=== PATIENT | male | born 1930 | race Caucasian/White ===

== ENCOUNTER 2018-03-24 17:06 | Inpatient (IN) ==
[2018-03-24] MEDS ORDERED: ACETAMINOPHEN 500 MG TABLET PO STA (17:24)
[2018-03-24] MEDS ORDERED: MEROPENEM 1,000 MG in SODIUM CHLORIDE 0.9% 100 ML IV STA (17:24)
[2018-03-24 17:54] LABS: Basophils % 0.3 % (0.0-0.8); Eosinophils % 0.4 % (0.00-10.9); Hematocrit 43.1 VOL% (42.0-52.0); Hemoglobin 13.9 GM/DL (14.0-18.0); Immature Granulocytes % 0.5 %; Immature Granulocytes Absolute 0.05 #; Lymphocytes % 21.1 % (21.2-54.2); Mean Corpuscular HGB Conc 32.3 GM/DL (32-36); Mean Corpuscular Hemoglobin 31 PG (27-34); Mean Corpuscular Volume 97.1 FL (87-102); Mean Platelet Volume 9.8 FL (9.6-12.0); Monocytes # 1.1 10*3/uL (0.11-0.8); Monocytes % 10.9 % (1.7-12.7); Neutrophils # 6.4 10*3/uL (1.4-7.4); Neutrophils % 66.8 % (38.7-73.9); Platelet Count 151 T/CUMM (130-400); Red Blood Count 4.44 MC/CUMM (3.8-5.5); White Blood Count 9.6 T/CUMM (4-12)
[2018-03-24 18:16] LABS: Albumin 3.6 G/DL (3.4-5.0); Bilirubin,Total 0.7 MG/DL (0.2-1.0); Calcium 8.5 MG/DL (8.5-10.1); Osmolality,Calculated 282.4 MOS/KG (273-304); Potassium 4.6 MMOL/L (3.5-5.1); Total Protein 6.7 G/DL (6.4-8.3)
[2018-03-24 18:17] LABS: Lactic Acid 1.4 MMOL/L (0.4-2.0)
[2018-03-24 19:16] LABS: Band Neutrophils 4 % (0-10); Eosinophils 2 % (0-10); Lymphocytes 34 % (20-55); Segmented Neutrophils 57 % (50-85); Total Cells Counted 100
[2018-03-24 19:18] LABS: Macrocytosis 1+
[2018-03-24 19:19] LABS: Platelet Estimate Adequate
[2018-03-24] MEDS ORDERED: ONDANSETRON 4 MG/2 ML VIAL IV PRN (19:41)
[2018-03-24] MEDS ORDERED: traZODone 50 MG TABLET PO PRN (19:41)
[2018-03-24] MEDS ORDERED: guaiFENesin/DM ER 600-30 MG TABLET PO PRN (19:41)
[2018-03-24] MEDS ORDERED: VANCOMYCIN INJ 1,000 MG in SODIUM CHLORIDE 0.9% 250 ML IV STA (19:51)
[2018-03-24 21:07] LABS: Apearance,Urine CLEAR (Clear); Bacteria,Urine Occasional /HPF (Few); Bilirubin,Urine Negative (Negative); Blood, Urine Moderate mg/dL (Negative); Glucose,Urine (UA) Negative (Negative); Ketones,Urine Negative (Negative); Mucus,Urine Occasional /LPF (Occasional); Nitrite,Urine Negative (Negative); Protein,Urine Negative; RBC,Urine 11 /HPF (0-4); Urine Color Yellow (Yellow); Urine Specific Gravity 1.012 (1.001-1.035); Urine Urobilinogen < 2.0 EU/DL (0.2-1.0); WBC,Urine 1 /HPF (0-6)
[2018-03-24 21:13] LABS: Sedimentation Rate-Westergren 11 MM/HR (0-20)
[2018-03-24] MEDS: ASPIRIN 325 MG TABLET PO SCH (22:41)
[2018-03-24] MEDS: MAGNESIUM OXIDE 400 MG TABLET PO SCH (22:41)
[2018-03-24] MEDS: METOPROLOL SUCCINATE XL 50 MG TABLET PO SCH (22:41)
[2018-03-24] MEDS: ATORVASTATIN 10 MG TABLET PO SCH (22:41)
[2018-03-24] MEDS: FUROSEMIDE 40 MG/4 ML VIAL IV SCH (22:46)
[2018-03-24] MEDS: ENOXAPARIN 40 MG/0.4 ML SYRINGE SUBCUT SCH (22:51)
[2018-03-25] MEDS: PIPERACILLIN/TAZOBACTAM 3,375 MG in SODIUM CHLORIDE 0.9% 100 ML IV SCH ×2 (00:06→08:54)
[2018-03-25 06:09] LABS: Basophils % 0.2 % (0.0-0.8); Eosinophils # 0.1 10*3/uL (0.0-0.87); Eosinophils % 0.7 % (0.00-10.9); Hematocrit 37.1 VOL% (42.0-52.0); Hemoglobin 12.4 GM/DL (14.0-18.0); Immature Granulocytes % 0.7 %; Immature Granulocytes Absolute 0.06 #; Lymphocytes % 21.3 % (21.2-54.2); Mean Corpuscular HGB Conc 33.4 GM/DL (32-36); Mean Corpuscular Hemoglobin 31 PG (27-34); Mean Corpuscular Volume 93.7 FL (87-102); Mean Platelet Volume 10.2 FL (9.6-12.0); Monocytes # 0.9 10*3/uL (0.11-0.8); Monocytes % 9.8 % (1.7-12.7); Neutrophils # 6.2 10*3/uL (1.4-7.4); Neutrophils % 67.3 % (38.7-73.9); Platelet Count 136 T/CUMM (130-400); Red Blood Count 3.96 MC/CUMM (3.8-5.5); Red Cell Distribution Width 14.2 % (9.3-17.3); White Blood Count 9.2 T/CUMM (4-12)
[2018-03-25] MEDS: VANCOMYCIN INJ 1,250 MG in SODIUM CHLORIDE 0.9% 250 ML IV SCH ×2 (06:13→18:16)
[2018-03-25 06:26] LABS: Calcium 8.4 MG/DL (8.5-10.1); Potassium 3.7 MMOL/L (3.5-5.1)
[2018-03-25] MEDS: FUROSEMIDE 40 MG/4 ML VIAL IV SCH ×2 (08:53→21:12)
[2018-03-25] MEDS: PANTOPRAZOLE 40 MG TABLET PO SCH (08:53)
[2018-03-25] MEDS: METOPROLOL SUCCINATE XL 50 MG TABLET PO SCH (21:11)
[2018-03-25] MEDS: ATORVASTATIN 10 MG TABLET PO SCH (21:11)
[2018-03-25] MEDS: ASPIRIN 325 MG TABLET PO SCH (21:12)
[2018-03-25] MEDS: MAGNESIUM OXIDE 400 MG TABLET PO SCH (21:12)
[2018-03-25] MEDS: ENOXAPARIN 40 MG/0.4 ML SYRINGE SUBCUT SCH (21:15)
[2018-03-26] MEDS: VANCOMYCIN INJ 1,250 MG in SODIUM CHLORIDE 0.9% 250 ML IV SCH (05:47)
[2018-03-26] MEDS: FUROSEMIDE 40 MG/4 ML VIAL IV SCH ×2 (09:57→20:05)
[2018-03-26] MEDS: PANTOPRAZOLE 40 MG TABLET PO SCH (10:00)
[2018-03-26] MEDS: Umeclidinium Brm/Vilanterol Tr [Anoro Ellipta] INH SCH (10:00)
[2018-03-26] MEDS: VANCOMYCIN INJ 1,000 MG in SODIUM CHLORIDE 0.9% 250 ML IV SCH (19:31)
[2018-03-26] MEDS: ATORVASTATIN 10 MG TABLET PO SCH (20:05)
[2018-03-26] MEDS: ENOXAPARIN 40 MG/0.4 ML SYRINGE SUBCUT SCH (20:05)
[2018-03-26] MEDS: MAGNESIUM OXIDE 400 MG TABLET PO SCH (20:05)
[2018-03-26] MEDS: METOPROLOL SUCCINATE XL 50 MG TABLET PO SCH (20:05)
[2018-03-26] MEDS: ASPIRIN 325 MG TABLET PO SCH (20:05)
[2018-03-27] MEDS: VANCOMYCIN INJ 1,000 MG in SODIUM CHLORIDE 0.9% 250 ML IV SCH ×2 (05:11→18:03)
[2018-03-27 07:00] LABS: Basophils % 0.4 % (0.0-0.8); Eosinophils # 0.3 10*3/uL (0.0-0.87); Eosinophils % 3.5 % (0.00-10.9); Hematocrit 44.1 VOL% (42.0-52.0); Immature Granulocytes % 1.1 %; Immature Granulocytes Absolute 0.09 #; Lymphocytes # 2.4 10*3/uL (1.4-4.0); Lymphocytes % 29.6 % (21.2-54.2); Mean Corpuscular HGB Conc 32.7 GM/DL (32-36); Mean Corpuscular Hemoglobin 31 PG (27-34); Mean Corpuscular Volume 96.1 FL (87-102); Mean Platelet Volume 10.5 FL (9.6-12.0); Monocytes % 12.1 % (1.7-12.7); Neutrophils # 4.3 10*3/uL (1.4-7.4); Neutrophils % 53.3 % (38.7-73.9); Red Blood Count 4.59 MC/CUMM (3.8-5.5); Red Cell Distribution Width 14.1 % (9.3-17.3)
[2018-03-27 07:28] LABS: Hemoglobin 14.4 GM/DL (14.0-18.0); Platelet Count 183 T/CUMM (130-400)
[2018-03-27 07:31] LABS: Bilirubin,Total 0.8 MG/DL (0.2-1.0); Calcium 8.8 MG/DL (8.5-10.1); Osmolality,Calculated 285.1 MOS/KG (273-304); Potassium 3.5 MMOL/L (3.5-5.1); Total Protein 6.7 G/DL (6.4-8.3)
[2018-03-27] MEDS: PANTOPRAZOLE 40 MG TABLET PO SCH (08:52)
[2018-03-27] MEDS: FUROSEMIDE 40 MG/4 ML VIAL IV SCH ×2 (08:55→20:18)
[2018-03-27] MEDS: Umeclidinium Brm/Vilanterol Tr [Anoro Ellipta] INH SCH (08:56)
[2018-03-27] MEDS: LEVOFLOXACIN 500 MG TABLET PO SCH (13:03)
[2018-03-27] MEDS: ENOXAPARIN 40 MG/0.4 ML SYRINGE SUBCUT SCH (20:18)
[2018-03-27] MEDS: ATORVASTATIN 10 MG TABLET PO SCH (20:18)
[2018-03-27] MEDS: ASPIRIN 325 MG TABLET PO SCH (20:18)
[2018-03-27] MEDS: MAGNESIUM OXIDE 400 MG TABLET PO SCH (20:18)
[2018-03-27] MEDS: DOCUSATE SODIUM 100 MG CAPSULE PO PRN (20:18)
[2018-03-27] MEDS: METOPROLOL SUCCINATE XL 50 MG TABLET PO SCH (20:18)
[2018-03-28 04:28] LABS: Basophils # 0.1 10*3/uL (0.0-0.2); Eosinophils # 0.3 10*3/uL (0.0-0.87); Eosinophils % 4.5 % (0.00-10.9); Hematocrit 42.2 VOL% (42.0-52.0); Hemoglobin 13.6 GM/DL (14.0-18.0); Immature Granulocytes % 0.7 %; Immature Granulocytes Absolute 0.04 #; Lymphocytes % 33.2 % (21.2-54.2); Mean Corpuscular HGB Conc 32.2 GM/DL (32-36); Mean Corpuscular Hemoglobin 31 PG (27-34); Mean Corpuscular Volume 95.9 FL (87-102); Mean Platelet Volume 10.6 FL (9.6-12.0); Monocytes % 16.3 % (1.7-12.7); Neutrophils # 2.7 10*3/uL (1.4-7.4); Neutrophils % 44.3 % (38.7-73.9); Platelet Count 190 T/CUMM (130-400)
[2018-03-28 04:59] LABS: Band Neutrophils 2 % (0-10); Eosinophils 3 % (0-10); Lymphocytes 30 % (20-55); Segmented Neutrophils 48 % (50-85); Total Cells Counted 100
[2018-03-28 05:00] LABS: Hypochromasia 1+; Platelet Estimate Adequate
[2018-03-28 05:03] LABS: Albumin 2.6 G/DL (3.4-5.0); Bilirubin,Total 0.9 MG/DL (0.2-1.0); Calcium 8.7 MG/DL (8.5-10.1); Potassium 3.8 MMOL/L (3.5-5.1); Total Protein 6.5 G/DL (6.4-8.3)
[2018-03-28] MEDS: VANCOMYCIN INJ 1,000 MG in SODIUM CHLORIDE 0.9% 250 ML IV SCH (05:16)
[2018-03-28] MEDS: FUROSEMIDE 40 MG/4 ML VIAL IV SCH (08:56)
[2018-03-28] MEDS: LEVOFLOXACIN 500 MG TABLET PO SCH (08:57)
[2018-03-28] MEDS: PANTOPRAZOLE 40 MG TABLET PO SCH (08:57)
[2018-03-28] MEDS: Umeclidinium Brm/Vilanterol Tr [Anoro Ellipta] INH SCH (09:03)
[2018-03-28] MEDS: DOCUSATE SODIUM 100 MG CAPSULE PO PRN (09:58)
[2018-03-28] MEDS ORDERED: METOPROLOL TARTRATE 5 MG/5 ML VIAL IV ONE (10:46)
[2018-03-28] MEDS ORDERED: DILTIAZEM 25 MG/5 ML VIAL IV ONE (14:15)
[2018-03-28] MEDS ORDERED: LABETALOL 20 MG/4 ML SYRINGE IV ONE (15:38)
[2018-03-28] MEDS ORDERED: PANTOPRAZOLE 40 MG TABLET PO SCH (21:00)
[2018-03-28] MEDS: METOPROLOL SUCCINATE XL 50 MG TABLET PO SCH (21:42)
[2018-03-28] MEDS: ENOXAPARIN 40 MG/0.4 ML SYRINGE SUBCUT SCH (21:42)
[2018-03-28] MEDS: DOCUSATE SODIUM 100 MG CAPSULE PO SCH (21:42)
[2018-03-28] MEDS: ASPIRIN 325 MG TABLET PO SCH (21:42)
[2018-03-28] MEDS: MAGNESIUM OXIDE 400 MG TABLET PO SCH (21:42)
[2018-03-28] MEDS: ATORVASTATIN 10 MG TABLET PO SCH (21:42)
[2018-03-29 05:07] LABS: Basophils # 0.1 10*3/uL (0.0-0.2); Basophils % 0.8 % (0.0-0.8); Eosinophils # 0.2 10*3/uL (0.0-0.87); Eosinophils % 2.9 % (0.00-10.9); Hematocrit 47.2 VOL% (42.0-52.0); Hemoglobin 15.5 GM/DL (14.0-18.0); Immature Granulocytes % 0.6 %; Immature Granulocytes Absolute 0.04 #; Lymphocytes # 3.9 10*3/uL (1.4-4.0); Lymphocytes % 53.5 % (21.2-54.2); Mean Corpuscular HGB Conc 32.8 GM/DL (32-36); Mean Corpuscular Hemoglobin 31 PG (27-34); Mean Corpuscular Volume 95.5 FL (87-102); Mean Platelet Volume 10.9 FL (9.6-12.0); Monocytes # 0.9 10*3/uL (0.11-0.8); Monocytes % 12.5 % (1.7-12.7); Neutrophils # 2.2 10*3/uL (1.4-7.4); Neutrophils % 29.7 % (38.7-73.9); Platelet Count 215 T/CUMM (130-400); Red Blood Count 4.94 MC/CUMM (3.8-5.5); Red Cell Distribution Width 14.2 % (9.3-17.3); White Blood Count 7.2 T/CUMM (4-12)
[2018-03-29 05:31] LABS: Eosinophils 6 % (0-10); Segmented Neutrophils 24 % (50-85)
[2018-03-29 05:32] LABS: Atypical Lymphocytes Few; Hypochromasia 1+; Lymphocytes 56 % (20-55); Ovalocytes Slight; Platelet Estimate Adequate; Total Cells Counted 100
[2018-03-29] MEDS: VANCOMYCIN INJ 1,000 MG in SODIUM CHLORIDE 0.9% 250 ML IV SCH ×2 (06:41→18:15)
[2018-03-29] MEDS: PANTOPRAZOLE 40 MG TABLET PO SCH (08:21)
[2018-03-29] MEDS: FUROSEMIDE 40 MG TABLET PO SCH (08:22)
[2018-03-29] MEDS: LEVOFLOXACIN 500 MG TABLET PO SCH (08:25)
[2018-03-29 08:41] LABS: Albumin 2.9 G/DL (3.4-5.0); Bilirubin,Total 0.9 MG/DL (0.2-1.0); Calcium 8.8 MG/DL (8.5-10.1); Potassium 3.6 MMOL/L (3.5-5.1); Total Protein 6.3 G/DL (6.4-8.3)
[2018-03-29] MEDS ORDERED: DILTIAZEM CD 120 MG CAPSULE PO SCH (09:30)
[2018-03-29] MEDS: Umeclidinium Brm/Vilanterol Tr [Anoro Ellipta] INH SCH (12:50)
[2018-03-29] MEDS: ASPIRIN 325 MG TABLET PO SCH (21:26)
[2018-03-29] MEDS: ATORVASTATIN 10 MG TABLET PO SCH (21:26)
[2018-03-29] MEDS: METOPROLOL TARTRATE 50 MG TABLET PO SCH (21:26)
[2018-03-29] MEDS: MAGNESIUM OXIDE 400 MG TABLET PO SCH (21:26)
[2018-03-29] MEDS: ENOXAPARIN 40 MG/0.4 ML SYRINGE SUBCUT SCH (21:26)
[2018-03-29] MEDS: DOCUSATE SODIUM 100 MG CAPSULE PO SCH (21:26)
[2018-03-30 04:47] LABS: Basophils # 0.1 10*3/uL (0.0-0.2); Basophils % 1.3 % (0.0-0.8); Eosinophils # 0.2 10*3/uL (0.0-0.87); Eosinophils % 3.8 % (0.00-10.9); Hematocrit 43.7 VOL% (42.0-52.0); Immature Granulocytes % 0.7 %; Immature Granulocytes Absolute 0.04 #; Lymphocytes # 2.7 10*3/uL (1.4-4.0); Lymphocytes % 49.1 % (21.2-54.2); Mean Corpuscular Hemoglobin 31 PG (27-34); Mean Corpuscular Volume 96.9 FL (87-102); Mean Platelet Volume 10.3 FL (9.6-12.0); Monocytes # 0.9 10*3/uL (0.11-0.8); Monocytes % 16.2 % (1.7-12.7); Neutrophils # 1.6 10*3/uL (1.4-7.4); Neutrophils % 28.9 % (38.7-73.9); Platelet Count 213 T/CUMM (130-400); Red Blood Count 4.51 MC/CUMM (3.8-5.5); White Blood Count 5.5 T/CUMM (4-12)
[2018-03-30 05:11] LABS: Calcium 8.8 MG/DL (8.5-10.1); Osmolality,Calculated 292.7 MOS/KG (273-304); Potassium 3.8 MMOL/L (3.5-5.1)
[2018-03-30 05:49] LABS: Albumin 2.7 G/DL (3.4-5.0); Bilirubin,Total 0.6 MG/DL (0.2-1.0); Calcium 8.9 MG/DL (8.5-10.1); Potassium 3.8 MMOL/L (3.5-5.1); Total Protein 6.2 G/DL (6.4-8.3)
[2018-03-30] MEDS: VANCOMYCIN INJ 1,000 MG in SODIUM CHLORIDE 0.9% 250 ML IV SCH ×2 (05:51→18:33)
[2018-03-30 07:38] LABS: Band Neutrophils 1 % (0-10); Eosinophils 3 % (0-10); Hypochromasia 1+; Lymphocytes 53 % (20-55); Segmented Neutrophils 28 % (50-85); Total Cells Counted 100
[2018-03-30 07:39] LABS: Macrocytosis Slight; Platelet Estimate Normal
[2018-03-30] MEDS ORDERED: DILTIAZEM CD 240 MG CAPSULE PO SCH (08:45)
[2018-03-30 09:12] LABS: Atypical Lymphocytes Moderate
[2018-03-30] MEDS: METOPROLOL TARTRATE 50 MG TABLET PO SCH ×2 (09:21→20:45)
[2018-03-30] MEDS: PANTOPRAZOLE 40 MG TABLET PO SCH (09:21)
[2018-03-30] MEDS: FUROSEMIDE 40 MG TABLET PO SCH (09:22)
[2018-03-30] MEDS: ASPIRIN EC 81 MG TABLET PO SCH (09:22)
[2018-03-30] MEDS: LEVOFLOXACIN 500 MG TABLET PO SCH (09:23)
[2018-03-30] MEDS: APIXABAN 5 MG TABLET PO SCH ×2 (09:23→20:44)
[2018-03-30] MEDS: FILGRASTIM-SNDZ 300 MCG/0.5 ML SYRINGE SUBCUT SCH (09:26)
[2018-03-30] MEDS: Umeclidinium Brm/Vilanterol Tr [Anoro Ellipta] INH SCH (09:27)
[2018-03-30] MEDS: MAGNESIUM OXIDE 400 MG TABLET PO SCH (20:44)
[2018-03-30] MEDS: ATORVASTATIN 10 MG TABLET PO SCH (20:45)
[2018-03-30] MEDS: DOCUSATE SODIUM 100 MG CAPSULE PO SCH (20:45)
[2018-03-31 04:04] LABS: Basophils # 0.1 10*3/uL (0.0-0.2); Basophils % 0.9 % (0.0-0.8); Eosinophils # 0.2 10*3/uL (0.0-0.87); Eosinophils % 2.6 % (0.00-10.9); Hematocrit 42.5 VOL% (42.0-52.0); Hemoglobin 13.8 GM/DL (14.0-18.0); Immature Granulocytes % 7.4 %; Immature Granulocytes Absolute 0.58 #; Lymphocytes # 2.2 10*3/uL (1.4-4.0); Lymphocytes % 27.7 % (21.2-54.2); Mean Corpuscular HGB Conc 32.5 GM/DL (32-36); Mean Corpuscular Hemoglobin 32 PG (27-34); Mean Corpuscular Volume 97.7 FL (87-102); Mean Platelet Volume 10.1 FL (9.6-12.0); Monocytes # 1.3 10*3/uL (0.11-0.8); Neutrophils # 3.5 10*3/uL (1.4-7.4); Neutrophils % 45.4 % (38.7-73.9); Platelet Count 207 T/CUMM (130-400); Red Blood Count 4.35 MC/CUMM (3.8-5.5); Red Cell Distribution Width 13.8 % (9.3-17.3); White Blood Count 7.8 T/CUMM (4-12)
[2018-03-31 04:42] LABS: Bilirubin,Total 1.1 MG/DL (0.2-1.0); Calcium 8.7 MG/DL (8.5-10.1); Potassium 4.1 MMOL/L (3.5-5.1); Total Protein 6.2 G/DL (6.4-8.3)
[2018-03-31 05:24] LABS: Band Neutrophils 4 % (0-10); Eosinophils 5 % (0-10); Hypochromasia 1+; Lymphocytes 26 % (20-55); Macrocytosis Slight; Ovalocytes Slight; Platelet Estimate Adequate; Segmented Neutrophils 51 % (50-85); Total Cells Counted 100
[2018-03-31 05:25] LABS: Atypical Lymphocytes Few
[2018-03-31] MEDS: VANCOMYCIN INJ 1,000 MG in SODIUM CHLORIDE 0.9% 250 ML IV SCH (05:45)
[2018-03-31] MEDS ORDERED: SODIUM CHLORIDE 0.9% 500 ML IV ONE (09:39)
[2018-03-31] MEDS: ASPIRIN EC 81 MG TABLET PO SCH (09:46)
[2018-03-31] MEDS: APIXABAN 5 MG TABLET PO SCH ×2 (09:46→21:01)
[2018-03-31] MEDS: LEVOFLOXACIN 500 MG TABLET PO SCH (09:46)
[2018-03-31] MEDS: FUROSEMIDE 40 MG TABLET PO SCH (09:46)
[2018-03-31] MEDS: METOPROLOL TARTRATE 50 MG TABLET PO SCH ×2 (09:47→21:02)
[2018-03-31] MEDS: PANTOPRAZOLE 40 MG TABLET PO SCH (09:47)
[2018-03-31] MEDS: DILTIAZEM CD 180 MG CAPSULE PO SCH (09:53)
[2018-03-31] MEDS: FILGRASTIM-SNDZ 300 MCG/0.5 ML SYRINGE SUBCUT SCH (10:02)
[2018-03-31] MEDS: Umeclidinium Brm/Vilanterol Tr [Anoro Ellipta] INH SCH (10:03)
[2018-03-31] MEDS ORDERED: HALOPERIDOL 5 MG/ML AMP IM ONE ×2 (10:10→21:00)
[2018-03-31] MEDS: SODIUM CHLORIDE 0.9% 1,000 ML IV SCH (10:20)
[2018-03-31] MEDS ORDERED: HALOPERIDOL 5 MG/ML AMP IV ONE (10:39)
[2018-03-31 14:57] LABS: Apearance,Urine CLEAR (Clear); Bilirubin,Urine Negative (Negative); Blood, Urine Negative (Negative); Glucose,Urine (UA) Negative (Negative); Hyaline Casts,Urine 1 /LPF (0-3); Ketones,Urine Negative (Negative); Mucus,Urine Occasional /LPF (Occasional); Nitrite,Urine Negative (Negative); Protein,Urine Negative; RBC,Urine <1 /HPF (0-4); Urine Color Straw (Yellow); Urine Specific Gravity 1.005 (1.001-1.035); Urine Urobilinogen < 2.0 EU/DL (0.2-1.0); WBC,Urine <1 /HPF (0-6)
[2018-03-31] MEDS: DOCUSATE SODIUM 100 MG CAPSULE PO SCH (21:01)
[2018-03-31] MEDS: MAGNESIUM OXIDE 400 MG TABLET PO SCH (21:01)
[2018-03-31] MEDS: ATORVASTATIN 10 MG TABLET PO SCH (21:02)
[2018-04-01 02:32] LABS: Basophils # 0.1 10*3/uL (0.0-0.2); Basophils % 1.2 % (0.0-0.8); Eosinophils # 0.1 10*3/uL (0.0-0.87); Eosinophils % 1.4 % (0.00-10.9); Hematocrit 43.6 VOL% (42.0-52.0); Hemoglobin 14.4 GM/DL (14.0-18.0); Immature Granulocytes % 0.4 %; Immature Granulocytes Absolute 0.04 #; Lymphocytes # 2.1 10*3/uL (1.4-4.0); Lymphocytes % 20.3 % (21.2-54.2); Mean Corpuscular Hemoglobin 32 PG (27-34); Mean Corpuscular Volume 95.4 FL (87-102); Mean Platelet Volume 10.3 FL (9.6-12.0); Monocytes # 1.3 10*3/uL (0.11-0.8); Monocytes % 12.6 % (1.7-12.7); Neutrophils # 6.7 10*3/uL (1.4-7.4); Neutrophils % 64.1 % (38.7-73.9); Platelet Count 223 T/CUMM (130-400); Red Blood Count 4.57 MC/CUMM (3.8-5.5); Red Cell Distribution Width 14.1 % (9.3-17.3); White Blood Count 10.4 T/CUMM (4-12)
[2018-04-01 03:02] LABS: Bilirubin,Total 0.9 MG/DL (0.2-1.0); Calcium 9.1 MG/DL (8.5-10.1); Potassium 4.1 MMOL/L (3.5-5.1); Total Protein 6.7 G/DL (6.4-8.3)
[2018-04-01 05:20] LABS: Band Neutrophils 32 % (0-10); Lymphocytes 28 % (20-55); Segmented Neutrophils 27 % (50-85); Total Cells Counted 100
[2018-04-01] MEDS ORDERED: DILTIAZEM CD 120 MG CAPSULE PO ONE (08:56)
[2018-04-01] MEDS: DILTIAZEM CD 180 MG CAPSULE PO SCH (09:42)
[2018-04-01] MEDS: APIXABAN 5 MG TABLET PO SCH ×2 (09:45→20:02)
[2018-04-01] MEDS: FUROSEMIDE 40 MG TABLET PO SCH (09:46)
[2018-04-01] MEDS: METOPROLOL TARTRATE 50 MG TABLET PO SCH ×2 (09:47→20:02)
[2018-04-01] MEDS: LEVOFLOXACIN 500 MG TABLET PO SCH (09:48)
[2018-04-01] MEDS: ASPIRIN EC 81 MG TABLET PO SCH (09:48)
[2018-04-01] MEDS: FILGRASTIM-SNDZ 300 MCG/0.5 ML SYRINGE SUBCUT SCH (09:50)
[2018-04-01] MEDS: Umeclidinium Brm/Vilanterol Tr [Anoro Ellipta] INH SCH (09:51)
[2018-04-01] MEDS: PANTOPRAZOLE 40 MG TABLET PO SCH (09:53)
[2018-04-01] MEDS: SODIUM CHLORIDE 0.9% 1,000 ML IV SCH (11:54)
[2018-04-01] MEDS: DOCUSATE SODIUM 100 MG CAPSULE PO SCH (20:02)
[2018-04-01] MEDS: ATORVASTATIN 10 MG TABLET PO SCH (20:02)
[2018-04-01] MEDS: MAGNESIUM OXIDE 400 MG TABLET PO SCH (20:02)
[2018-04-02] MEDS: SODIUM CHLORIDE 0.9% 1,000 ML IV SCH (00:47)
[2018-04-02] MEDS: METOPROLOL TARTRATE 50 MG TABLET PO SCH ×2 (08:29→20:57)
[2018-04-02] MEDS: LEVOFLOXACIN 500 MG TABLET PO SCH (08:29)
[2018-04-02] MEDS: Umeclidinium Brm/Vilanterol Tr [Anoro Ellipta] INH SCH (08:29)
[2018-04-02] MEDS: ASPIRIN EC 81 MG TABLET PO SCH (08:29)
[2018-04-02] MEDS: APIXABAN 5 MG TABLET PO SCH ×2 (08:29→20:57)
[2018-04-02] MEDS: PANTOPRAZOLE 40 MG TABLET PO SCH (08:30)
[2018-04-02] MEDS ORDERED: ADENOSINE 6 MG/2 ML VIAL ONE ×2 (12:50→12:52)
[2018-04-02] MEDS ORDERED: ADENOSINE 6 MG/2 ML VIAL IV ONE ×2 (18:51→18:52)
[2018-04-02] MEDS: DOCUSATE SODIUM 100 MG CAPSULE PO SCH (20:57)
[2018-04-02] MEDS: MAGNESIUM OXIDE 400 MG TABLET PO SCH (20:57)
[2018-04-02] MEDS: ATORVASTATIN 10 MG TABLET PO SCH (20:57)
[2018-04-03 05:18] LABS: Calcium 8.9 MG/DL (8.5-10.1); Osmolality,Calculated 290.8 MOS/KG (273-304); Potassium 4.3 MMOL/L (3.5-5.1)
[2018-04-03 07:13] LABS: Basophils # 0.2 10*3/uL (0.0-0.2); Basophils % 1.2 % (0.0-0.8); Eosinophils # 0.1 10*3/uL (0.0-0.87); Eosinophils % 0.8 % (0.00-10.9); Immature Granulocytes % 1.8 %; Immature Granulocytes Absolute 0.24 #; Lymphocytes # 3.5 10*3/uL (1.4-4.0); Lymphocytes % 26.7 % (21.2-54.2); Mean Corpuscular HGB Conc 31.8 GM/DL (32-36); Mean Corpuscular Hemoglobin 31 PG (27-34); Mean Corpuscular Volume 98.7 FL (87-102); Mean Platelet Volume 10.6 FL (9.6-12.0); Monocytes # 1.8 10*3/uL (0.11-0.8); Monocytes % 13.5 % (1.7-12.7); Neutrophils # 7.3 10*3/uL (1.4-7.4); Platelet Count 215 T/CUMM (130-400); Red Blood Count 4.46 MC/CUMM (3.8-5.5); Red Cell Distribution Width 14.2 % (9.3-17.3)
[2018-04-03 07:25] LABS: Albumin 2.8 G/DL (3.4-5.0); Bilirubin,Total 0.6 MG/DL (0.2-1.0); Calcium 8.9 MG/DL (8.5-10.1); Potassium 4.3 MMOL/L (3.5-5.1); Total Protein 6.1 G/DL (6.4-8.3)
[2018-04-03 07:34] LABS: Band Neutrophils 1 % (0-10); Lymphocytes 26 % (20-55); Segmented Neutrophils 61 % (50-85)
[2018-04-03 07:35] LABS: Atypical Lymphocytes Few; Hypochromasia 1+; Macrocytosis Slight; Platelet Estimate Adequate; Total Cells Counted 100
[2018-04-03] MEDS: PANTOPRAZOLE 40 MG TABLET PO SCH (09:33)
[2018-04-03] MEDS: LEVOFLOXACIN 500 MG TABLET PO SCH (09:33)
[2018-04-03] MEDS: ASPIRIN EC 81 MG TABLET PO SCH (09:33)
[2018-04-03] MEDS: APIXABAN 5 MG TABLET PO SCH ×2 (09:33→21:04)
[2018-04-03] MEDS: METOPROLOL TARTRATE 50 MG TABLET PO SCH ×2 (09:33→21:04)
[2018-04-03] MEDS: Umeclidinium Brm/Vilanterol Tr [Anoro Ellipta] INH SCH (09:34)
[2018-04-03] MEDS ORDERED: PROPOFOL 200 MG/20 ML VIAL IV ONE (10:32)
[2018-04-03] MEDS ORDERED: ETOMIDATE 40 MG/20 ML VIAL IV ONE (10:33)
[2018-04-03] MEDS ORDERED: MIDAZOLAM 2 MG/2 ML VIAL ONE (10:33)
[2018-04-03] MEDS: SODIUM CHLORIDE 0.9% 1,000 ML IV SCH (15:56)
[2018-04-03] MEDS: DOCUSATE SODIUM 100 MG CAPSULE PO SCH (21:04)
[2018-04-03] MEDS: ATORVASTATIN 10 MG TABLET PO SCH (21:04)
[2018-04-03] MEDS: MAGNESIUM OXIDE 400 MG TABLET PO SCH (21:04)
[2018-04-04 08:29] VITALS: BP 165/72
[2018-04-04] MEDS: METOPROLOL TARTRATE 50 MG TABLET PO SCH (11:24)
[2018-04-04] MEDS: ASPIRIN EC 81 MG TABLET PO SCH (11:24)
[2018-04-04] MEDS: LEVOFLOXACIN 500 MG TABLET PO SCH (11:24)
[2018-04-04] MEDS: PANTOPRAZOLE 40 MG TABLET PO SCH (11:24)
[2018-04-04] MEDS: APIXABAN 5 MG TABLET PO SCH (11:25)
== END 2018-04-04 12:30 | disposition home health service (06) | DRG 603 ==
LOC: N.ED 17:06 → N.EDINP 19:39 → SUATTDRO 19:39 → N.4E 22:02 → N.TELEN 04-02 10:36
PROVIDERS: ADMIT Emergency Medicine; ATTEND Internal Medicine

== ENCOUNTER 2018-05-01 06:22 | Inpatient (IN) ==
[2018-05-01] MEDS ORDERED: SODIUM CHLORIDE 0.9% 500 ML IV STA (06:46)
[2018-05-01] MEDS ORDERED: ONDANSETRON 4 MG/2 ML VIAL IV STA (06:47)
[2018-05-01] MEDS ORDERED: fentaNYL 100 MCG/2 ML VIAL IV STA (06:47)
[2018-05-01 07:48] LABS: Basophils % 0.8 % (0.0-0.8); Eosinophils # 0.1 10*3/uL (0.0-0.87); Hematocrit 41.3 VOL% (42.0-52.0); Hemoglobin 13.5 GM/DL (14.0-18.0); Immature Granulocytes % 0.4 %; Immature Granulocytes Absolute 0.02 #; Lymphocytes # 1.9 10*3/uL (1.4-4.0); Lymphocytes % 37.8 % (21.2-54.2); Mean Corpuscular HGB Conc 32.7 GM/DL (32-36); Mean Corpuscular Hemoglobin 31 PG (27-34); Mean Corpuscular Volume 94.1 FL (87-102); Mean Platelet Volume 9.8 FL (9.6-12.0); Monocytes % 19.4 % (1.7-12.7); Neutrophils % 39.6 % (38.7-73.9); Platelet Count 166 T/CUMM (130-400); Red Blood Count 4.39 MC/CUMM (3.8-5.5); Red Cell Distribution Width 13.8 % (9.3-17.3); White Blood Count 5.1 T/CUMM (4-12)
[2018-05-01 08:12] LABS: Albumin 2.9 G/DL (3.4-5.0); Bilirubin,Total 0.7 MG/DL (0.2-1.0); Osmolality,Calculated 281.3 MOS/KG (273-304); Potassium 3.7 MMOL/L (3.5-5.1); Total Protein 6.6 G/DL (6.4-8.3)
[2018-05-01 08:14] LABS: Band Neutrophils 10 % (0-10); Eosinophils 2 % (0-10); Lymphocytes 44 % (20-55); Platelet Estimate Normal; Segmented Neutrophils 31 % (50-85); Total Cells Counted 100
[2018-05-01 08:15] LABS: Atypical Lymphocytes Few
[2018-05-01 08:56] LABS: Apearance,Urine Slightly Hazy (Clear); Bacteria,Urine Many /HPF (Few); Bilirubin,Urine Negative (Negative); Blood, Urine Large mg/dL (Negative); Glucose,Urine (UA) Negative (Negative); Ketones,Urine Negative (Negative); Mucus,Urine Few /LPF (Occasional); Nitrite,Urine Positive (Negative); Protein,Urine Negative; RBC,Urine 74 /HPF (0-4); Urine Color Yellow (Yellow); Urine Specific Gravity 1.016 (1.001-1.035); Urine Urobilinogen < 2.0 EU/DL (0.2-1.0); WBC,Urine 23 /HPF (0-6)
[2018-05-01] MEDS ORDERED: ONDANSETRON 4 MG/2 ML VIAL IV PRN (11:12)
[2018-05-01] MEDS: FUROSEMIDE 40 MG TABLET PO SCH (11:50)
[2018-05-01] MEDS: PIPERACILLIN/TAZOBACTAM 3,375 MG in SODIUM CHLORIDE 0.9% 100 ML IV SCH ×2 (11:50→20:54)
[2018-05-01] MEDS: APIXABAN 5 MG TABLET PO SCH ×2 (11:50→20:55)
[2018-05-01] MEDS: METOPROLOL TARTRATE 50 MG TABLET PO SCH ×2 (11:50→20:55)
[2018-05-01] MEDS: SODIUM CHLORIDE 0.45% 1,000 ML IV SCH (11:51)
[2018-05-01] MEDS: MORPHINE 4 MG/1 ML VIAL IV PRN ×2 (11:51→21:05)
[2018-05-01 12:36] LABS: Risk Ratio 3.1; VLDL CHOLESTEROL 19.6 MG/DL
[2018-05-01] MEDS: ASPIRIN EC 81 MG TABLET PO SCH (20:55)
[2018-05-01] MEDS: ATORVASTATIN 10 MG TABLET PO SCH (20:55)
[2018-05-01] MEDS: POLYETHYLENE GLYCOL POWDER 17 GM PACK PO SCH (21:09)
[2018-05-02] MEDS: PIPERACILLIN/TAZOBACTAM 3,375 MG in SODIUM CHLORIDE 0.9% 100 ML IV SCH ×3 (03:56→23:27)
[2018-05-02] MEDS: MORPHINE 4 MG/1 ML VIAL IV PRN (03:57)
[2018-05-02] MEDS: ZINC OXIDE PASTE 113 GM TUBE TOP SCH ×3 (04:02→21:53)
[2018-05-02 07:53] LABS: Basophils % 0.7 % (0.0-0.8); Eosinophils # 0.1 10*3/uL (0.0-0.87); Hematocrit 42.1 VOL% (42.0-52.0); Hemoglobin 13.8 GM/DL (14.0-18.0); Immature Granulocytes % 0.9 %; Immature Granulocytes Absolute 0.05 #; Lymphocytes # 2.1 10*3/uL (1.4-4.0); Lymphocytes % 38.8 % (21.2-54.2); Mean Corpuscular HGB Conc 32.8 GM/DL (32-36); Mean Corpuscular Hemoglobin 31 PG (27-34); Mean Corpuscular Volume 94.2 FL (87-102); Mean Platelet Volume 9.8 FL (9.6-12.0); Monocytes # 0.9 10*3/uL (0.11-0.8); Monocytes % 16.6 % (1.7-12.7); Neutrophils # 2.2 10*3/uL (1.4-7.4); Platelet Count 163 T/CUMM (130-400); Red Blood Count 4.47 MC/CUMM (3.8-5.5); Red Cell Distribution Width 13.4 % (9.3-17.3); White Blood Count 5.5 T/CUMM (4-12)
[2018-05-02 08:19] LABS: Atypical Lymphocytes Few; Band Neutrophils 22 % (0-10); Eosinophils 3 % (0-10); Lymphocytes 34 % (20-55); Platelet Estimate Normal; Segmented Neutrophils 27 % (50-85); Total Cells Counted 100
[2018-05-02 08:40] LABS: Albumin 2.7 G/DL (3.4-5.0); Bilirubin,Total 0.8 MG/DL (0.2-1.0); Calcium 8.8 MG/DL (8.5-10.1); Osmolality,Calculated 282.1 MOS/KG (273-304); Potassium 3.8 MMOL/L (3.5-5.1); Total Protein 6.3 G/DL (6.4-8.3)
[2018-05-02] MEDS ORDERED: VILANTEROL TR INH SCH (09:00)
[2018-05-02] MEDS ORDERED: UMECLIDINIUM BRM INH SCH (09:00)
[2018-05-02] MEDS: PANTOPRAZOLE 40 MG TABLET PO SCH (09:16)
[2018-05-02] MEDS: FUROSEMIDE 40 MG TABLET PO SCH (09:16)
[2018-05-02] MEDS: METOPROLOL TARTRATE 50 MG TABLET PO SCH ×2 (09:17→21:53)
[2018-05-02] MEDS: APIXABAN 5 MG TABLET PO SCH ×2 (09:18→21:53)
[2018-05-02] MEDS: TAMSULOSIN 0.4 MG CAPSULE PO SCH (09:18)
[2018-05-02] MEDS: POLYETHYLENE GLYCOL POWDER 17 GM PACK PO SCH (21:53)
[2018-05-02] MEDS: ATORVASTATIN 10 MG TABLET PO SCH (21:53)
[2018-05-02] MEDS: ASPIRIN EC 81 MG TABLET PO SCH (21:53)
[2018-05-02] MEDS: SODIUM CHLORIDE 0.45% 1,000 ML IV SCH (23:27)
[2018-05-03] MEDS: PIPERACILLIN/TAZOBACTAM 3,375 MG in SODIUM CHLORIDE 0.9% 100 ML IV SCH ×2 (06:15→16:17)
[2018-05-03] MEDS: SODIUM CHLORIDE 0.45% 1,000 ML IV SCH (06:15)
[2018-05-03] MEDS: APIXABAN 5 MG TABLET PO SCH ×2 (10:23→20:30)
[2018-05-03] MEDS: PANTOPRAZOLE 40 MG TABLET PO SCH (10:23)
[2018-05-03] MEDS: TAMSULOSIN 0.4 MG CAPSULE PO SCH (10:23)
[2018-05-03] MEDS: METOPROLOL TARTRATE 50 MG TABLET PO SCH ×2 (10:24→20:30)
[2018-05-03] MEDS: FUROSEMIDE 40 MG TABLET PO SCH (10:24)
[2018-05-03] MEDS: ZINC OXIDE PASTE 113 GM TUBE TOP SCH (10:27)
[2018-05-03] MEDS: ASPIRIN EC 81 MG TABLET PO SCH (20:30)
[2018-05-03] MEDS: ATORVASTATIN 10 MG TABLET PO SCH (20:30)
[2018-05-03] MEDS: POLYETHYLENE GLYCOL POWDER 17 GM PACK PO SCH (20:30)
[2018-05-04] MEDS: PIPERACILLIN/TAZOBACTAM 3,375 MG in SODIUM CHLORIDE 0.9% 100 ML IV SCH ×3 (05:10→22:09)
[2018-05-04] MEDS: APIXABAN 5 MG TABLET PO SCH (09:16)
[2018-05-04] MEDS: TAMSULOSIN 0.4 MG CAPSULE PO SCH (09:17)
[2018-05-04] MEDS: PANTOPRAZOLE 40 MG TABLET PO SCH (09:17)
[2018-05-04] MEDS: FUROSEMIDE 40 MG TABLET PO SCH (09:17)
[2018-05-04] MEDS: METOPROLOL TARTRATE 50 MG TABLET PO SCH ×2 (09:18→22:12)
[2018-05-04] MEDS: ZINC OXIDE PASTE 113 GM TUBE TOP SCH ×3 (09:20→22:17)
[2018-05-04] MEDS: SODIUM CHLORIDE 0.45% 1,000 ML IV SCH ×2 (16:43→22:08)
[2018-05-04] MEDS: fentaNYL 100 MCG/2 ML VIAL IV PRN (16:54)
[2018-05-04] MEDS: ATORVASTATIN 10 MG TABLET PO SCH (22:12)
[2018-05-04] MEDS: ASPIRIN EC 81 MG TABLET PO SCH (22:13)
[2018-05-04] MEDS: POLYETHYLENE GLYCOL POWDER 17 GM PACK PO SCH (22:15)
[2018-05-04] MEDS: VANCOMYCIN 50 MG/ML 60 ML/BOTTLE PO SCH (23:41)
[2018-05-05] MEDS: PIPERACILLIN/TAZOBACTAM 3,375 MG in SODIUM CHLORIDE 0.9% 100 ML IV SCH (05:40)
[2018-05-05] MEDS: VANCOMYCIN 50 MG/ML 60 ML/BOTTLE PO SCH ×3 (05:40→17:58)
[2018-05-05] MEDS: PANTOPRAZOLE 40 MG TABLET PO SCH (08:11)
[2018-05-05] MEDS: TAMSULOSIN 0.4 MG CAPSULE PO SCH (08:11)
[2018-05-05] MEDS: METOPROLOL TARTRATE 50 MG TABLET PO SCH ×2 (08:12→20:54)
[2018-05-05] MEDS: FUROSEMIDE 40 MG TABLET PO SCH (08:12)
[2018-05-05] MEDS: ZINC OXIDE PASTE 113 GM TUBE TOP SCH ×2 (08:12→20:55)
[2018-05-05] MEDS: ACETAMINOPHEN 325 MG TABLET PO PRN ×2 (13:53→16:47)
[2018-05-05] MEDS: SODIUM CHLORIDE 0.45% 1,000 ML IV SCH ×2 (15:11→20:58)
[2018-05-05] MEDS: ATORVASTATIN 10 MG TABLET PO SCH (20:54)
[2018-05-05] MEDS: ASPIRIN EC 81 MG TABLET PO SCH (20:54)
[2018-05-05] MEDS: POLYETHYLENE GLYCOL POWDER 17 GM PACK PO SCH (20:55)
[2018-05-06] MEDS: VANCOMYCIN 50 MG/ML 60 ML/BOTTLE PO SCH ×4 (00:41→17:51)
[2018-05-06 06:37] LABS: Basophils # 0.1 10*3/uL (0.0-0.2); Basophils % 0.9 % (0.0-0.8); Eosinophils # 0.1 10*3/uL (0.0-0.87); Eosinophils % 0.9 % (0.00-10.9); Hematocrit 43.9 VOL% (42.0-52.0); Hemoglobin 14.8 GM/DL (14.0-18.0); Immature Granulocytes % 0.9 %; Immature Granulocytes Absolute 0.07 #; Lymphocytes # 2.7 10*3/uL (1.4-4.0); Lymphocytes % 32.9 % (21.2-54.2); Mean Corpuscular HGB Conc 33.7 GM/DL (32-36); Mean Corpuscular Hemoglobin 31 PG (27-34); Mean Corpuscular Volume 90.7 FL (87-102); Mean Platelet Volume 10.4 FL (9.6-12.0); Monocytes % 11.8 % (1.7-12.7); Neutrophils # 4.3 10*3/uL (1.4-7.4); Neutrophils % 52.6 % (38.7-73.9); Platelet Count 185 T/CUMM (130-400); Red Blood Count 4.84 MC/CUMM (3.8-5.5); Red Cell Distribution Width 13.4 % (9.3-17.3); White Blood Count 8.1 T/CUMM (4-12)
[2018-05-06 06:55] LABS: Calcium 9.1 MG/DL (8.5-10.1); Osmolality,Calculated 279.4 MOS/KG (273-304)
[2018-05-06] MEDS: FUROSEMIDE 40 MG TABLET PO SCH (08:57)
[2018-05-06] MEDS: METOPROLOL TARTRATE 50 MG TABLET PO SCH ×2 (08:57→20:37)
[2018-05-06] MEDS: TAMSULOSIN 0.4 MG CAPSULE PO SCH (08:57)
[2018-05-06] MEDS: PANTOPRAZOLE 40 MG TABLET PO SCH (08:57)
[2018-05-06] MEDS: ZINC OXIDE PASTE 113 GM TUBE TOP SCH ×2 (10:11→20:38)
[2018-05-06] MEDS: fentaNYL 100 MCG/2 ML VIAL IV PRN ×2 (13:59→22:19)
[2018-05-06] MEDS: SODIUM CHLORIDE 0.45% 1,000 ML IV SCH (18:57)
[2018-05-06] MEDS: ATORVASTATIN 10 MG TABLET PO SCH (20:37)
[2018-05-06] MEDS: ASPIRIN EC 81 MG TABLET PO SCH (20:37)
[2018-05-06] MEDS: POLYETHYLENE GLYCOL POWDER 17 GM PACK PO SCH (20:38)
[2018-05-07] MEDS: VANCOMYCIN 50 MG/ML 60 ML/BOTTLE PO SCH ×5 (00:02→23:33)
[2018-05-07 05:53] LABS: Basophils # 0.1 10*3/uL (0.0-0.2); Basophils % 0.8 % (0.0-0.8); Eosinophils # 0.1 10*3/uL (0.0-0.87); Eosinophils % 0.8 % (0.00-10.9); Hematocrit 46.5 VOL% (42.0-52.0); Hemoglobin 15.5 GM/DL (14.0-18.0); Immature Granulocytes % 0.9 %; Immature Granulocytes Absolute 0.07 #; Lymphocytes # 2.7 10*3/uL (1.4-4.0); Lymphocytes % 34.3 % (21.2-54.2); Mean Corpuscular HGB Conc 33.3 GM/DL (32-36); Mean Corpuscular Hemoglobin 31 PG (27-34); Mean Corpuscular Volume 91.7 FL (87-102); Mean Platelet Volume 9.9 FL (9.6-12.0); Monocytes # 1.1 10*3/uL (0.11-0.8); Monocytes % 13.9 % (1.7-12.7); Neutrophils # 3.9 10*3/uL (1.4-7.4); Neutrophils % 49.3 % (38.7-73.9); Platelet Count 172 T/CUMM (130-400); Red Blood Count 5.07 MC/CUMM (3.8-5.5); Red Cell Distribution Width 13.2 % (9.3-17.3); White Blood Count 7.8 T/CUMM (4-12)
[2018-05-07 06:21] LABS: Osmolality,Calculated 276.7 MOS/KG (273-304); Potassium 3.2 MMOL/L (3.5-5.1)
[2018-05-07 07:43] LABS: Albumin 2.7 G/DL (3.4-5.0); Bilirubin,Total 0.6 MG/DL (0.2-1.0); Osmolality,Calculated 275.7 MOS/KG (273-304); Potassium 3.2 MMOL/L (3.5-5.1); Total Protein 6.5 G/DL (6.4-8.3)
[2018-05-07] MEDS ORDERED: POTASSIUM CHLORIDE RIDER 10 MEQ in PREMIX 1 EACH IV PRN (07:46)
[2018-05-07] MEDS ORDERED: POTASSIUM CHLORIDE 20 MEQ/15 ML UDCUP PER TUBE PRN (07:46)
[2018-05-07] MEDS: ZINC OXIDE PASTE 113 GM TUBE TOP SCH ×2 (09:09→20:56)
[2018-05-07] MEDS: PANTOPRAZOLE 40 MG TABLET PO SCH (09:09)
[2018-05-07] MEDS: FUROSEMIDE 40 MG TABLET PO SCH (09:10)
[2018-05-07] MEDS: METOPROLOL TARTRATE 50 MG TABLET PO SCH ×2 (09:10→20:47)
[2018-05-07] MEDS: TAMSULOSIN 0.4 MG CAPSULE PO SCH (09:11)
[2018-05-07] MEDS: POTASSIUM CHLORIDE 20 MEQ TABLET PO PRN ×3 (09:12→20:47)
[2018-05-07] MEDS: SODIUM CHLORIDE 0.45% 1,000 ML IV SCH (19:09)
[2018-05-07] MEDS: ASPIRIN EC 81 MG TABLET PO SCH (20:47)
[2018-05-07] MEDS: ATORVASTATIN 10 MG TABLET PO SCH (20:47)
[2018-05-07] MEDS: LACTOBACILLUS ACIDOPHILUS/BULGARICUS CAPLET PO SCH (20:47)
[2018-05-07] MEDS: POLYETHYLENE GLYCOL POWDER 17 GM PACK PO SCH (20:48)
[2018-05-08 05:14] LABS: Basophils # 0.1 10*3/uL (0.0-0.2); Basophils % 0.8 % (0.0-0.8); Eosinophils # 0.1 10*3/uL (0.0-0.87); Eosinophils % 0.8 % (0.00-10.9); Hematocrit 41.7 VOL% (42.0-52.0); Hemoglobin 14.2 GM/DL (14.0-18.0); Immature Granulocytes % 0.6 %; Immature Granulocytes Absolute 0.05 #; Lymphocytes # 2.9 10*3/uL (1.4-4.0); Lymphocytes % 37.4 % (21.2-54.2); Mean Corpuscular HGB Conc 34.1 GM/DL (32-36); Mean Corpuscular Hemoglobin 31 PG (27-34); Mean Platelet Volume 10.2 FL (9.6-12.0); Monocytes % 13.1 % (1.7-12.7); Neutrophils # 3.7 10*3/uL (1.4-7.4); Neutrophils % 47.3 % (38.7-73.9); Platelet Count 186 T/CUMM (130-400); Red Blood Count 4.58 MC/CUMM (3.8-5.5); Red Cell Distribution Width 13.2 % (9.3-17.3); White Blood Count 7.8 T/CUMM (4-12)
[2018-05-08] MEDS: VANCOMYCIN 50 MG/ML 60 ML/BOTTLE PO SCH ×4 (05:32→23:15)
[2018-05-08 05:43] LABS: Albumin 2.6 G/DL (3.4-5.0); Bilirubin,Total 0.6 MG/DL (0.2-1.0); Calcium 8.9 MG/DL (8.5-10.1); Osmolality,Calculated 278.5 MOS/KG (273-304); Potassium 3.7 MMOL/L (3.5-5.1); Total Protein 6.1 G/DL (6.4-8.3)
[2018-05-08] MEDS ORDERED: TISSUE ADHESIVE 1 EACH APPLICATOR TOP ONE (12:06)
[2018-05-08] MEDS ORDERED: ROPIVACAINE 0.5% 30 ML VIAL ONE (12:07)
[2018-05-08] MEDS ORDERED: PROPOFOL 200 MG/20 ML VIAL IV ONE (13:37)
[2018-05-08] MEDS ORDERED: PHENYLEPHRINE 1 MG/10 ML SYRINGE IV ONE (13:37)
[2018-05-08] MEDS: LACTOBACILLUS ACIDOPHILUS/BULGARICUS CAPLET PO SCH ×2 (16:23→20:39)
[2018-05-08] MEDS: TAMSULOSIN 0.4 MG CAPSULE PO SCH (16:23)
[2018-05-08] MEDS: ZINC OXIDE PASTE 113 GM TUBE TOP SCH ×2 (16:23→20:40)
[2018-05-08] MEDS: METOPROLOL TARTRATE 50 MG TABLET PO SCH ×2 (16:24→20:39)
[2018-05-08] MEDS: PANTOPRAZOLE 40 MG TABLET PO SCH (16:24)
[2018-05-08] MEDS: FUROSEMIDE 40 MG TABLET PO SCH (18:16)
[2018-05-08] MEDS: ASPIRIN EC 81 MG TABLET PO SCH (20:39)
[2018-05-08] MEDS: ATORVASTATIN 10 MG TABLET PO SCH (20:39)
[2018-05-08] MEDS: POLYETHYLENE GLYCOL POWDER 17 GM PACK PO SCH (20:40)
[2018-05-09 05:23] LABS: Basophils # 0.1 10*3/uL (0.0-0.2); Eosinophils # 0.1 10*3/uL (0.0-0.87); Eosinophils % 1.4 % (0.00-10.9); Hematocrit 47.4 VOL% (42.0-52.0); Hemoglobin 15.7 GM/DL (14.0-18.0); Immature Granulocytes % 1.2 %; Lymphocytes # 3.3 10*3/uL (1.4-4.0); Lymphocytes % 37.6 % (21.2-54.2); Mean Corpuscular HGB Conc 33.1 GM/DL (32-36); Mean Corpuscular Hemoglobin 31 PG (27-34); Mean Platelet Volume 10.7 FL (9.6-12.0); Monocytes # 0.9 10*3/uL (0.11-0.8); Neutrophils # 4.2 10*3/uL (1.4-7.4); Neutrophils % 48.8 % (38.7-73.9); Platelet Count 167 T/CUMM (130-400); Red Blood Count 5.15 MC/CUMM (3.8-5.5); Red Cell Distribution Width 13.3 % (9.3-17.3); White Blood Count 8.7 T/CUMM (4-12)
[2018-05-09] MEDS: VANCOMYCIN 50 MG/ML 60 ML/BOTTLE PO SCH (06:08)
[2018-05-09] MEDS: FUROSEMIDE 40 MG TABLET PO SCH (09:31)
[2018-05-09] MEDS: LACTOBACILLUS ACIDOPHILUS/BULGARICUS CAPLET PO SCH (09:31)
[2018-05-09] MEDS: ZINC OXIDE PASTE 113 GM TUBE TOP SCH (09:31)
[2018-05-09] MEDS: PANTOPRAZOLE 40 MG TABLET PO SCH (09:31)
[2018-05-09] MEDS: METOPROLOL TARTRATE 50 MG TABLET PO SCH (09:31)
[2018-05-09] MEDS: TAMSULOSIN 0.4 MG CAPSULE PO SCH (09:31)
[2018-05-09 13:10] VITALS: BP 113/57
== END 2018-05-09 13:05 | disposition swing bed (61) | DRG 477 ==
LOC: EDUNIT# → N.ED 06:22 → N.EDINP 08:59 → SUATTDRO 08:59 → N.4E 10:04
PROVIDERS: ADMIT Internal Medicine; ATTEND Hospitalist

== ENCOUNTER 2018-06-25 12:26 | Inpatient (IN) ==
[2018-06-25 14:01] LABS: Hematocrit 38.3 VOL% (42.0-52.0); Hemoglobin 12.1 GM/DL (14.0-18.0); Mean Corpuscular HGB Conc 31.6 GM/DL (32-36); Mean Corpuscular Hemoglobin 31 PG (27-34); Mean Corpuscular Volume 96.7 FL (87-102); Red Blood Count 3.96 MC/CUMM (3.8-5.5)
[2018-06-25 14:02] LABS: Basophils # 0.1 10*3/uL (0.0-0.2); Basophils % 0.5 % (0.0-0.8); Eosinophils # 0.1 10*3/uL (0.0-0.87); Eosinophils % 0.5 % (0.00-10.9); Immature Granulocytes % 0.5 %; Immature Granulocytes Absolute 0.05 #; Lymphocytes # 5.6 10*3/uL (1.4-4.0); Lymphocytes % 51.2 % (21.2-54.2); Mean Platelet Volume 10.1 FL (9.6-12.0); Monocytes % 18.5 % (1.7-12.7); Neutrophils # 3.2 10*3/uL (1.4-7.4); Neutrophils % 28.8 % (38.7-73.9); Platelet Count 192 T/CUMM (130-400); Red Cell Distribution Width 15.7 % (9.3-17.3)
[2018-06-25 14:10] LABS: INR 1.1; PT Patient Result 11.4 SECS
[2018-06-25 14:13] LABS: Albumin 2.8 G/DL (3.4-5.0); Bilirubin,Total 1.3 MG/DL (0.2-1.0); Calcium 6.3 MG/DL (8.5-10.1); Osmolality,Calculated 287.8 MOS/KG (273-304); Potassium 3.2 MMOL/L (3.5-5.1); Total Protein 6.3 G/DL (6.4-8.3)
[2018-06-25 15:00] LABS: Anisocytosis 1+; Lymphocytes 48 % (20-55); Segmented Neutrophils 37 % (50-85); Total Cells Counted 100
[2018-06-25 15:01] LABS: Microcytosis Slight
[2018-06-25] MEDS ORDERED: SODIUM CHLORIDE 0.9% 500 ML IV STA (15:05)
[2018-06-25 15:06] LABS: Ovalocytes Few
[2018-06-25 15:07] LABS: Stomatocytes Slight
[2018-06-25 16:23] LABS: Lactic Acid 1.2 MMOL/L (0.4-2.0)
[2018-06-25] MEDS ORDERED: ACETAMINOPHEN 325 MG TABLET PO PRN (17:09)
[2018-06-25] MEDS ORDERED: ONDANSETRON 4 MG/2 ML VIAL IV PRN ×2 (17:09→18:58)
[2018-06-25] MEDS: POTASSIUM CHLORIDE 20 MEQ TABLET PO PRN (18:51)
[2018-06-25] MEDS: SODIUM CHLORIDE 0.9% 1,000 ML IV SCH (18:52)
[2018-06-25] MEDS ORDERED: SODIUM CHLORIDE 0.9% 1,000 ML IV SCH (18:58)
[2018-06-25 20:52] LABS: Hematocrit 35.1 VOL% (42.0-52.0); Hemoglobin 11.4 GM/DL (14.0-18.0)
[2018-06-25] MEDS: LACTOBACILLUS ACIDOPHILUS/BULGARICUS CAPLET PO SCH (20:54)
[2018-06-25] MEDS: diphenhydrAMINE CAP 25 MG CAPSULE PO SCH (20:55)
[2018-06-25] MEDS: MAGNESIUM OXIDE 400 MG TABLET PO SCH (20:55)
[2018-06-25] MEDS: METOPROLOL TARTRATE 50 MG TABLET PO SCH (20:55)
[2018-06-25] MEDS: ATORVASTATIN 10 MG TABLET PO SCH (20:55)
[2018-06-25] MEDS ORDERED: PANTOPRAZOLE 40 MG TABLET PO SCH (21:00)
[2018-06-25] MEDS ORDERED: ASPIRIN EC 81 MG TABLET PO SCH (21:00)
[2018-06-25] MEDS: POTASSIUM CHLORIDE 20 MEQ TABLET PO SCH ×2 (22:12→22:32)
[2018-06-25] MEDS: PANTOPRAZOLE 40 MG TABLET PO SCH (22:35)
[2018-06-25 23:18] LABS: Hematocrit 39.9 VOL% (42.0-52.0); Hemoglobin 12.8 GM/DL (14.0-18.0)
[2018-06-25] MEDS: ZIPRASIDONE 20 MG/1 ML VIAL IM PRN (23:46)
[2018-06-26] MEDS ORDERED: HALOPERIDOL 5 MG/ML AMP IV ONE (00:32)
[2018-06-26 05:02] LABS: Basophils # 0.1 10*3/uL (0.0-0.2); Basophils % 0.6 % (0.0-0.8); Eosinophils # 0.1 10*3/uL (0.0-0.87); Eosinophils % 1.2 % (0.00-10.9); Hematocrit 35.2 VOL% (42.0-52.0); Hemoglobin 11.4 GM/DL (14.0-18.0); Immature Granulocytes Absolute 0.09 #; Lymphocytes # 5.7 10*3/uL (1.4-4.0); Lymphocytes % 60.8 % (21.2-54.2); Mean Corpuscular HGB Conc 32.4 GM/DL (32-36); Mean Corpuscular Hemoglobin 31 PG (27-34); Mean Corpuscular Volume 95.1 FL (87-102); Mean Platelet Volume 10.3 FL (9.6-12.0); Monocytes % 10.1 % (1.7-12.7); Neutrophils # 2.5 10*3/uL (1.4-7.4); Neutrophils % 26.3 % (38.7-73.9); Platelet Count 164 T/CUMM (130-400); Red Cell Distribution Width 15.7 % (9.3-17.3); White Blood Count 9.4 T/CUMM (4-12)
[2018-06-26] MEDS: POTASSIUM CHLORIDE 20 MEQ TABLET PO SCH (05:23)
[2018-06-26 05:29] LABS: Atypical Lymphocytes Few; Eosinophils 2 % (0-10); Hypochromasia 1+; Lymphocytes 62 % (20-55); Ovalocytes Slight; Platelet Estimate Normal; Segmented Neutrophils 29 % (50-85); Total Cells Counted 100
[2018-06-26 05:30] LABS: Microcytosis Slight
[2018-06-26 05:32] LABS: Calcium 5.9 MG/DL (8.5-10.1); Osmolality,Calculated 286.7 MOS/KG (273-304); Potassium 3.1 MMOL/L (3.5-5.1)
[2018-06-26 05:41] LABS: Osmolality,Calculated 288.6 MOS/KG (273-304)
[2018-06-26 05:55] LABS: Calcium 5.8 MG/DL (8.5-10.1); Troponin I 0.046 NG/ML (0.00-0.045)
[2018-06-26] MEDS: POTASSIUM CHLORIDE 20 MEQ TABLET PO PRN ×5 (09:18→21:16)
[2018-06-26] MEDS: PANTOPRAZOLE 40 MG TABLET PO SCH ×3 (09:18→21:15)
[2018-06-26] MEDS: MAGNESIUM OXIDE 400 MG TABLET PO SCH ×3 (09:18→21:16)
[2018-06-26] MEDS: LACTOBACILLUS ACIDOPHILUS/BULGARICUS CAPLET PO SCH ×3 (09:18→21:16)
[2018-06-26] MEDS: FUROSEMIDE 80 MG TABLET PO SCH ×2 (09:18→11:02)
[2018-06-26] MEDS: Umeclidinium Brm/Vilanterol Tr [Anoro Ellipta] INH SCH (09:19)
[2018-06-26 13:58] LABS: Troponin I 0.043 NG/ML (0.00-0.045)
[2018-06-26] MEDS ORDERED: traZODone 50 MG TABLET PO PRN (14:53)
[2018-06-26] MEDS: FUROSEMIDE 40 MG TABLET PO SCH (16:05)
[2018-06-26] MEDS: SODIUM CHLORIDE 0.9% 1,000 ML IV SCH (17:02)
[2018-06-26] MEDS ORDERED: MELATONIN 3 MG TABLET PO SCH (21:00)
[2018-06-26] MEDS: ZIPRASIDONE 20 MG/1 ML VIAL IM PRN (21:13)
[2018-06-26] MEDS: ATORVASTATIN 10 MG TABLET PO SCH (21:16)
[2018-06-26] MEDS: METOPROLOL TARTRATE 50 MG TABLET PO SCH (21:16)
[2018-06-26] MEDS: diphenhydrAMINE CAP 25 MG CAPSULE PO SCH (21:16)
[2018-06-27 02:50] LABS: Basophils # 0.1 10*3/uL (0.0-0.2); Basophils % 0.8 % (0.0-0.8); Eosinophils # 0.1 10*3/uL (0.0-0.87); Eosinophils % 0.7 % (0.00-10.9); Hematocrit 35.6 VOL% (42.0-52.0); Hemoglobin 11.3 GM/DL (14.0-18.0); Immature Granulocytes % 0.8 %; Immature Granulocytes Absolute 0.08 #; Lymphocytes # 5.5 10*3/uL (1.4-4.0); Lymphocytes % 57.8 % (21.2-54.2); Mean Corpuscular HGB Conc 31.7 GM/DL (32-36); Mean Corpuscular Hemoglobin 31 PG (27-34); Mean Corpuscular Volume 97.8 FL (87-102); Mean Platelet Volume 10.1 FL (9.6-12.0); Monocytes # 1.7 10*3/uL (0.11-0.8); Monocytes % 18.2 % (1.7-12.7); Neutrophils % 21.7 % (38.7-73.9); Platelet Count 164 T/CUMM (130-400); Red Blood Count 3.64 MC/CUMM (3.8-5.5); Red Cell Distribution Width 15.9 % (9.3-17.3); White Blood Count 9.4 T/CUMM (4-12)
[2018-06-27 03:11] LABS: Osmolality,Calculated 283.8 MOS/KG (273-304); Potassium 3.7 MMOL/L (3.5-5.1)
[2018-06-27 03:16] LABS: Calcium 5.7 MG/DL (8.5-10.1)
[2018-06-27 03:31] LABS: Band Neutrophils 1 % (0-10); Lymphocytes 55 % (20-55); Metamyelocytes 1 %; Platelet Estimate Normal; Reactive Lymphocytes 2+; Segmented Neutrophils 24 % (50-85); Smudge Cells Few; Total Cells Counted 100
[2018-06-27] MEDS ORDERED: APIXABAN 2.5 MG TABLET PO SCH (09:00)
[2018-06-27] MEDS ORDERED: DEXAMETHASONE INJ 20 MG in SODIUM CHLORIDE 0.9% 50 ML IV ONE (09:30)
[2018-06-27] MEDS ORDERED: GRANISETRON 1 MG/1 ML VIAL IV ONE (09:30)
[2018-06-27] MEDS ORDERED: BENDAMUSTINE IV ONE (10:00)
[2018-06-27] MEDS ORDERED: SODIUM CHLORIDE 0.9% IV ONE ×2 (10:00→10:30)
[2018-06-27] MEDS: FUROSEMIDE 80 MG TABLET PO SCH (10:08)
[2018-06-27] MEDS: MAGNESIUM OXIDE 400 MG TABLET PO SCH (10:08)
[2018-06-27] MEDS: PANTOPRAZOLE 40 MG TABLET PO SCH (10:08)
[2018-06-27] MEDS: LACTOBACILLUS ACIDOPHILUS/BULGARICUS CAPLET PO SCH (10:08)
[2018-06-27] MEDS ORDERED: RITUXIMAB IV ONE (10:30)
[2018-06-27 18:19] VITALS: BP 95/46
[2018-06-27] MEDS: FUROSEMIDE 40 MG TABLET PO SCH (19:32)
[2018-06-27] MEDS: Umeclidinium Brm/Vilanterol Tr [Anoro Ellipta] INH SCH (19:32)
== END 2018-06-27 19:40 | disposition home health service (06) | DRG 813 ==
LOC: N.ED 12:26 → N.EDINP 16:44 → SUATTDRO 16:44 → N.4E 17:46
PROVIDERS: ADMIT Internal Medicine; ATTEND Internal Medicine

== ENCOUNTER 2018-07-05 16:45 | Inpatient (IN) ==
[2018-07-05 17:30] LABS: Basophils % 0.3 % (0.0-0.8); Eosinophils % 0.3 % (0.00-10.9); Hematocrit 37.2 VOL% (42.0-52.0); Hemoglobin 12.2 GM/DL (14.0-18.0); Immature Granulocytes % 0.3 %; Immature Granulocytes Absolute 0.01 #; Lymphocytes # 1.5 10*3/uL (1.4-4.0); Lymphocytes % 46.2 % (21.2-54.2); Mean Corpuscular HGB Conc 32.8 GM/DL (32-36); Mean Corpuscular Hemoglobin 31 PG (27-34); Mean Corpuscular Volume 95.1 FL (87-102); Mean Platelet Volume 10.1 FL (9.6-12.0); Monocytes # 0.5 10*3/uL (0.11-0.8); Monocytes % 16.6 % (1.7-12.7); Neutrophils # 1.2 10*3/uL (1.4-7.4); Neutrophils % 36.3 % (38.7-73.9); Platelet Count 183 T/CUMM (130-400); Red Blood Count 3.91 MC/CUMM (3.8-5.5); Red Cell Distribution Width 15.8 % (9.3-17.3); White Blood Count 3.3 T/CUMM (4-12)
[2018-07-05 17:42] LABS: Albumin 2.7 G/DL (3.4-5.0); Bilirubin,Total 0.6 MG/DL (0.2-1.0); Calcium 6.5 MG/DL (8.5-10.1); Osmolality,Calculated 282.3 MOS/KG (273-304); Potassium 3.9 MMOL/L (3.5-5.1); Total Protein 6.4 G/DL (6.4-8.3)
[2018-07-05 17:54] LABS: Band Neutrophils 2 % (0-10); Lymphocytes 43 % (20-55); Platelet Estimate Normal; Segmented Neutrophils 43 % (50-85); Total Cells Counted 100
[2018-07-05 19:27] LABS: Apearance,Urine CLEAR (Clear); Bilirubin,Urine Negative (Negative); Blood, Urine Negative (Negative); Glucose,Urine (UA) Negative (Negative); Hyaline Casts,Urine 6 /LPF (0-3); Ketones,Urine Negative (Negative); Mucus,Urine Occasional /LPF (Occasional); Nitrite,Urine Negative (Negative); Protein,Urine Negative; RBC,Urine <1 /HPF (0-4); Urine Color Yellow (Yellow); Urine Specific Gravity 1.012 (1.001-1.035); Urine Urobilinogen < 2.0 EU/DL (0.2-1.0); WBC,Urine 1 /HPF (0-6)
[2018-07-05] MEDS ORDERED: PIPERACILLIN/TAZOBACTAM 3,375 MG in SODIUM CHLORIDE 0.9% 100 ML IV ONE (19:59)
[2018-07-05] MEDS ORDERED: ACETAMINOPHEN 325 MG TABLET PO PRN (20:34)
[2018-07-05] MEDS ORDERED: ONDANSETRON 4 MG/2 ML VIAL IV PRN (20:34)
[2018-07-05] MEDS ORDERED: guaiFENesin/DM ER 600-30 MG TABLET PO PRN (20:34)
[2018-07-05] MEDS ORDERED: ACETAMINOPHEN 500 MG TABLET PO STA (20:41)
[2018-07-05] MEDS ORDERED: AZITHROMYCIN INJ 500 MG in SODIUM CHLORIDE 0.9% 250 ML IV SCH (22:30)
[2018-07-05] MEDS: SODIUM CHLORIDE 0.9% 1,000 ML IV SCH (22:55)
[2018-07-05] MEDS: MAGNESIUM OXIDE 400 MG TABLET PO SCH (22:55)
[2018-07-05] MEDS: METOPROLOL TARTRATE 50 MG TABLET PO SCH (22:55)
[2018-07-05] MEDS: cefTRIAXone 1,000 MG in SYRINGE 1 EACH IV SCH (22:55)
[2018-07-05] MEDS: ATORVASTATIN 10 MG TABLET PO SCH (22:55)
[2018-07-05] MEDS: APIXABAN 5 MG TABLET PO SCH (22:55)
[2018-07-05] MEDS: ASPIRIN EC 81 MG TABLET PO SCH (22:55)
[2018-07-05] MEDS: PANTOPRAZOLE 40 MG TABLET PO SCH (22:55)
[2018-07-06] MEDS: ALBUTEROL/IPRATROPIUM 3 ML NEB RESP TX SCH ×4 (00:16→20:08)
[2018-07-06 03:16] LABS: Basophils % 0.3 % (0.0-0.8); Eosinophils % 0.7 % (0.00-10.9); Hematocrit 33.1 VOL% (42.0-52.0); Hemoglobin 10.3 GM/DL (14.0-18.0); Immature Granulocytes % 0.3 %; Immature Granulocytes Absolute 0.01 #; Mean Corpuscular HGB Conc 31.1 GM/DL (32-36); Mean Corpuscular Hemoglobin 30 PG (27-34); Mean Corpuscular Volume 96.5 FL (87-102); Mean Platelet Volume 10.1 FL (9.6-12.0); Monocytes # 0.8 10*3/uL (0.11-0.8); Neutrophils % 35.7 % (38.7-73.9); Platelet Count 162 T/CUMM (130-400); Red Blood Count 3.43 MC/CUMM (3.8-5.5); Red Cell Distribution Width 15.9 % (9.3-17.3); White Blood Count 2.9 T/CUMM (4-12)
[2018-07-06 03:56] LABS: Lymphocytes 47 % (20-55); Metamyelocytes 1 %; Platelet Estimate Adequate; Segmented Neutrophils 42 % (50-85); Total Cells Counted 100
[2018-07-06 04:10] LABS: Albumin 2.3 G/DL (3.4-5.0); Bilirubin,Total 1.5 MG/DL (0.2-1.0); Calcium 6.1 MG/DL (8.5-10.1); Potassium 3.5 MMOL/L (3.5-5.1); Total Protein 5.5 G/DL (6.4-8.3)
[2018-07-06] MEDS: FUROSEMIDE 40 MG TABLET PO SCH ×2 (09:12→22:23)
[2018-07-06] MEDS: APIXABAN 5 MG TABLET PO SCH ×2 (09:12→22:23)
[2018-07-06] MEDS: FILGRASTIM-SNDZ 300 MCG/0.5 ML SYRINGE SUBCUT SCH (09:13)
[2018-07-06] MEDS: MAGNESIUM OXIDE 400 MG TABLET PO SCH ×2 (09:13→22:23)
[2018-07-06] MEDS: PANTOPRAZOLE 40 MG TABLET PO SCH ×2 (09:13→22:23)
[2018-07-06] MEDS: ASPIRIN EC 81 MG TABLET PO SCH (22:23)
[2018-07-06] MEDS: METOPROLOL TARTRATE 50 MG TABLET PO SCH (22:23)
[2018-07-06] MEDS: ATORVASTATIN 10 MG TABLET PO SCH (22:23)
[2018-07-06] MEDS: cefTRIAXone 1,000 MG in SYRINGE 1 EACH IV SCH (22:24)
[2018-07-07] MEDS: SODIUM CHLORIDE 0.9% 1,000 ML IV SCH (00:15)
[2018-07-07] MEDS: ALBUTEROL/IPRATROPIUM 3 ML NEB RESP TX SCH ×4 (01:02→19:10)
[2018-07-07 02:47] LABS: Basophils % 0.2 % (0.0-0.8); Eosinophils % 0.2 % (0.00-10.9); Hematocrit 31.7 VOL% (42.0-52.0); Hemoglobin 10.5 GM/DL (14.0-18.0); Immature Granulocytes % 0.5 %; Immature Granulocytes Absolute 0.02 #; Lymphocytes # 1.2 10*3/uL (1.4-4.0); Lymphocytes % 26.7 % (21.2-54.2); Mean Corpuscular HGB Conc 33.1 GM/DL (32-36); Mean Corpuscular Hemoglobin 32 PG (27-34); Mean Corpuscular Volume 95.2 FL (87-102); Mean Platelet Volume 10.2 FL (9.6-12.0); Monocytes # 0.8 10*3/uL (0.11-0.8); Monocytes % 19.1 % (1.7-12.7); Neutrophils # 2.3 10*3/uL (1.4-7.4); Neutrophils % 53.3 % (38.7-73.9); Platelet Count 158 T/CUMM (130-400); Red Blood Count 3.33 MC/CUMM (3.8-5.5); Red Cell Distribution Width 15.9 % (9.3-17.3); White Blood Count 4.4 T/CUMM (4-12)
[2018-07-07 03:14] LABS: Calcium 6.1 MG/DL (8.5-10.1); Potassium 3.4 MMOL/L (3.5-5.1)
[2018-07-07 03:44] LABS: Band Neutrophils 21 % (0-10); Eosinophils 2 % (0-10); Lymphocytes 27 % (20-55); Metamyelocytes 3 %; Myelocytes 2 %; Platelet Estimate Adequate; Segmented Neutrophils 26 % (50-85); Total Cells Counted 100
[2018-07-07 03:45] LABS: Anisocytosis 2+; Hypochromasia Slight; Macrocytosis 1+; Microcytosis 1+
[2018-07-07] MEDS: MAGNESIUM OXIDE 400 MG TABLET PO SCH ×2 (09:23→20:26)
[2018-07-07] MEDS: FUROSEMIDE 40 MG TABLET PO SCH ×2 (09:23→20:26)
[2018-07-07] MEDS: APIXABAN 5 MG TABLET PO SCH (09:23)
[2018-07-07] MEDS: PANTOPRAZOLE 40 MG TABLET PO SCH ×2 (09:24→20:26)
[2018-07-07] MEDS: FILGRASTIM-SNDZ 300 MCG/0.5 ML SYRINGE SUBCUT SCH (09:24)
[2018-07-07] MEDS ORDERED: POTASSIUM CHLORIDE 20 MEQ TABLET PO ONE (10:08)
[2018-07-07] MEDS ORDERED: MAGNESIUM SULF RIDER 2 GM in PREMIX 1 EACH IV ONE (10:08)
[2018-07-07 10:47] LABS: Albumin 2.2 G/DL (3.4-5.0); Bilirubin,Total 0.5 MG/DL (0.2-1.0); Calcium 6.1 MG/DL (8.5-10.1); Potassium 3.5 MMOL/L (3.5-5.1); Total Protein 5.5 G/DL (6.4-8.3)
[2018-07-07] MEDS: VANCOMYCIN INJ 1,000 MG in SODIUM CHLORIDE 0.9% 250 ML IV SCH (10:59)
[2018-07-07] MEDS: METOPROLOL TARTRATE 50 MG TABLET PO SCH (20:26)
[2018-07-07] MEDS: ATORVASTATIN 10 MG TABLET PO SCH (20:26)
[2018-07-07] MEDS: ASPIRIN EC 81 MG TABLET PO SCH (20:26)
[2018-07-08] MEDS: cefTRIAXone 1,000 MG in SYRINGE 1 EACH IV SCH ×2 (00:59→21:00)
[2018-07-08] MEDS: SODIUM CHLORIDE 0.9% 1,000 ML IV SCH ×2 (01:07→21:01)
[2018-07-08] MEDS: ALBUTEROL/IPRATROPIUM 3 ML NEB RESP TX SCH ×4 (01:08→20:10)
[2018-07-08] MEDS: VANCOMYCIN INJ 1,000 MG in SODIUM CHLORIDE 0.9% 250 ML IV SCH ×3 (01:14→23:45)
[2018-07-08 03:27] LABS: Basophils # 0.1 10*3/uL (0.0-0.2); Basophils % 0.7 % (0.0-0.8); Eosinophils # 0.1 10*3/uL (0.0-0.87); Eosinophils % 0.6 % (0.00-10.9); Hematocrit 35.3 VOL% (42.0-52.0); Hemoglobin 11.4 GM/DL (14.0-18.0); Immature Granulocytes % 2.1 %; Immature Granulocytes Absolute 0.17 #; Lymphocytes # 1.9 10*3/uL (1.4-4.0); Lymphocytes % 23.9 % (21.2-54.2); Mean Corpuscular HGB Conc 32.3 GM/DL (32-36); Mean Corpuscular Hemoglobin 31 PG (27-34); Mean Corpuscular Volume 96.2 FL (87-102); Mean Platelet Volume 10.6 FL (9.6-12.0); Monocytes # 0.9 10*3/uL (0.11-0.8); Monocytes % 10.8 % (1.7-12.7); Neutrophils % 61.9 % (38.7-73.9); Platelet Count 178 T/CUMM (130-400); Red Blood Count 3.67 MC/CUMM (3.8-5.5); Red Cell Distribution Width 15.7 % (9.3-17.3)
[2018-07-08 03:46] LABS: Calcium 6.5 MG/DL (8.5-10.1); Potassium 3.9 MMOL/L (3.5-5.1)
[2018-07-08 03:47] LABS: Calcium 6.6 MG/DL (8.5-10.1); Osmolality,Calculated 285.8 MOS/KG (273-304); Potassium 3.7 MMOL/L (3.5-5.1)
[2018-07-08 03:58] LABS: Band Neutrophils 13 % (0-10); Eosinophils 1 % (0-10); Lymphocytes 19 % (20-55); Metamyelocytes 1 %; Myelocytes 1 %; Segmented Neutrophils 54 % (50-85); Total Cells Counted 100
[2018-07-08 04:12] LABS: Reactive Lymphocytes 1+
[2018-07-08 04:13] LABS: Hypochromasia Slight; Platelet Estimate Normal
[2018-07-08 04:14] LABS: Ovalocytes 1+; Polychromasia Few
[2018-07-08] MEDS: FUROSEMIDE 40 MG TABLET PO SCH ×2 (09:45→20:59)
[2018-07-08] MEDS: PANTOPRAZOLE 40 MG TABLET PO SCH ×2 (09:45→20:59)
[2018-07-08] MEDS: MAGNESIUM OXIDE 400 MG TABLET PO SCH ×2 (09:45→20:59)
[2018-07-08] MEDS: FILGRASTIM-SNDZ 300 MCG/0.5 ML SYRINGE SUBCUT SCH (09:46)
[2018-07-08] MEDS: METOPROLOL TARTRATE 50 MG TABLET PO SCH (20:59)
[2018-07-08] MEDS: ATORVASTATIN 10 MG TABLET PO SCH (21:00)
[2018-07-08] MEDS: ASPIRIN EC 81 MG TABLET PO SCH (21:00)
[2018-07-09] MEDS: ALBUTEROL/IPRATROPIUM 3 ML NEB RESP TX SCH ×4 (00:59→19:17)
[2018-07-09 03:05] LABS: Basophils # 0.1 10*3/uL (0.0-0.2); Basophils % 0.4 % (0.0-0.8); Eosinophils % 0.3 % (0.00-10.9); Hematocrit 37.4 VOL% (42.0-52.0); Hemoglobin 11.6 GM/DL (14.0-18.0); Immature Granulocytes % 1.5 %; Immature Granulocytes Absolute 0.17 #; Lymphocytes # 1.7 10*3/uL (1.4-4.0); Lymphocytes % 15.4 % (21.2-54.2); Mean Corpuscular Hemoglobin 30 PG (27-34); Mean Corpuscular Volume 96.4 FL (87-102); Mean Platelet Volume 10.7 FL (9.6-12.0); Monocytes # 1.3 10*3/uL (0.11-0.8); Monocytes % 11.6 % (1.7-12.7); Neutrophils # 7.9 10*3/uL (1.4-7.4); Neutrophils % 70.8 % (38.7-73.9); Platelet Count 197 T/CUMM (130-400); Red Blood Count 3.88 MC/CUMM (3.8-5.5); Red Cell Distribution Width 15.5 % (9.3-17.3); White Blood Count 11.2 T/CUMM (4-12)
[2018-07-09 03:24] LABS: Osmolality,Calculated 281.1 MOS/KG (273-304)
[2018-07-09 03:27] LABS: Albumin 2.4 G/DL (3.4-5.0); Calcium 6.8 MG/DL (8.5-10.1); Osmolality,Calculated 281.1 MOS/KG (273-304); Potassium 3.8 MMOL/L (3.5-5.1)
[2018-07-09 05:02] LABS: Hypochromasia Slight; Platelet Estimate Adequate
[2018-07-09] MEDS: FUROSEMIDE 40 MG TABLET PO SCH ×2 (09:45→21:31)
[2018-07-09] MEDS: MAGNESIUM OXIDE 400 MG TABLET PO SCH ×2 (09:45→21:31)
[2018-07-09] MEDS: PANTOPRAZOLE 40 MG TABLET PO SCH ×2 (09:46→21:31)
[2018-07-09] MEDS: FILGRASTIM-SNDZ 300 MCG/0.5 ML SYRINGE SUBCUT SCH (09:52)
[2018-07-09] MEDS: VANCOMYCIN INJ 1,000 MG in SODIUM CHLORIDE 0.9% 250 ML IV SCH (11:05)
[2018-07-09] MEDS: ASPIRIN EC 81 MG TABLET PO SCH (21:31)
[2018-07-09] MEDS: METOPROLOL TARTRATE 50 MG TABLET PO SCH (21:31)
[2018-07-09] MEDS: ATORVASTATIN 10 MG TABLET PO SCH (21:32)
[2018-07-09] MEDS: SODIUM CHLORIDE 0.9% 1,000 ML IV SCH (21:32)
[2018-07-10] MEDS: ALBUTEROL/IPRATROPIUM 3 ML NEB RESP TX SCH ×4 (00:12→18:56)
[2018-07-10] MEDS: VANCOMYCIN INJ 1,000 MG in SODIUM CHLORIDE 0.9% 250 ML IV SCH ×3 (01:00→23:58)
[2018-07-10] MEDS: SODIUM CHLORIDE 0.9% 1,000 ML IV SCH ×2 (03:00→22:36)
[2018-07-10 03:19] LABS: Basophils # 0.1 10*3/uL (0.0-0.2); Basophils % 0.7 % (0.0-0.8); Eosinophils % 0.2 % (0.00-10.9); Hematocrit 37.2 VOL% (42.0-52.0); Hemoglobin 11.6 GM/DL (14.0-18.0); Immature Granulocytes % 1.5 %; Immature Granulocytes Absolute 0.22 #; Lymphocytes # 2.5 10*3/uL (1.4-4.0); Lymphocytes % 16.8 % (21.2-54.2); Mean Corpuscular HGB Conc 31.2 GM/DL (32-36); Mean Corpuscular Hemoglobin 30 PG (27-34); Mean Corpuscular Volume 95.4 FL (87-102); Mean Platelet Volume 10.3 FL (9.6-12.0); Monocytes # 1.8 10*3/uL (0.11-0.8); Neutrophils # 10.4 10*3/uL (1.4-7.4); Neutrophils % 68.8 % (38.7-73.9); Platelet Count 218 T/CUMM (130-400); Red Cell Distribution Width 15.4 % (9.3-17.3)
[2018-07-10 03:54] LABS: Albumin 2.7 G/DL (3.4-5.0); Bilirubin,Total 1.2 MG/DL (0.2-1.0); Calcium 6.9 MG/DL (8.5-10.1); Osmolality,Calculated 276.5 MOS/KG (273-304); Potassium 3.6 MMOL/L (3.5-5.1); Total Protein 6.2 G/DL (6.4-8.3)
[2018-07-10] MEDS: FUROSEMIDE 40 MG TABLET PO SCH ×2 (09:27→22:35)
[2018-07-10] MEDS: PANTOPRAZOLE 40 MG TABLET PO SCH ×2 (09:27→22:35)
[2018-07-10] MEDS: MAGNESIUM OXIDE 400 MG TABLET PO SCH ×2 (09:27→22:35)
[2018-07-10] MEDS: QUEtiapine 25 MG TABLET PO SCH (22:35)
[2018-07-10] MEDS: METOPROLOL TARTRATE 50 MG TABLET PO SCH (22:35)
[2018-07-10] MEDS: ATORVASTATIN 10 MG TABLET PO SCH (22:35)
[2018-07-10] MEDS: ASPIRIN EC 81 MG TABLET PO SCH (22:36)
[2018-07-11] MEDS: ALBUTEROL/IPRATROPIUM 3 ML NEB RESP TX SCH ×4 (02:07→19:13)
[2018-07-11 03:47] LABS: Basophils # 0.1 10*3/uL (0.0-0.2); Basophils % 0.7 % (0.0-0.8); Eosinophils % 0.2 % (0.00-10.9); Hematocrit 30.9 VOL% (42.0-52.0); Hemoglobin 9.8 GM/DL (14.0-18.0); Immature Granulocytes % 1.1 %; Immature Granulocytes Absolute 0.11 #; Lymphocytes # 2.3 10*3/uL (1.4-4.0); Lymphocytes % 22.3 % (21.2-54.2); Mean Corpuscular HGB Conc 31.7 GM/DL (32-36); Mean Corpuscular Hemoglobin 30 PG (27-34); Mean Corpuscular Volume 95.4 FL (87-102); Mean Platelet Volume 10.5 FL (9.6-12.0); Monocytes # 0.9 10*3/uL (0.11-0.8); Monocytes % 9.2 % (1.7-12.7); Neutrophils # 6.8 10*3/uL (1.4-7.4); Neutrophils % 66.5 % (38.7-73.9); Platelet Count 174 T/CUMM (130-400); Red Blood Count 3.24 MC/CUMM (3.8-5.5); Red Cell Distribution Width 15.4 % (9.3-17.3); White Blood Count 10.2 T/CUMM (4-12)
[2018-07-11 04:05] LABS: Osmolality,Calculated 281.3 MOS/KG (273-304); Potassium 3.9 MMOL/L (3.5-5.1)
[2018-07-11 04:11] LABS: Albumin 2.3 G/DL (3.4-5.0); Calcium 7.1 MG/DL (8.5-10.1); Osmolality,Calculated 283.1 MOS/KG (273-304); Potassium 3.9 MMOL/L (3.5-5.1); Total Protein 5.1 G/DL (6.4-8.3)
[2018-07-11 04:16] LABS: Band Neutrophils 15 % (0-10); Eosinophils 1 % (0-10); Hypochromasia 2+; Lymphocytes 12 % (20-55); Metamyelocytes 1 %; Platelet Estimate Normal; Segmented Neutrophils 64 % (50-85); Total Cells Counted 100
[2018-07-11] MEDS: SODIUM CHLORIDE 0.9% 1,000 ML IV SCH ×2 (07:25→22:18)
[2018-07-11] MEDS: FUROSEMIDE 40 MG TABLET PO SCH ×2 (10:43→22:17)
[2018-07-11] MEDS: PANTOPRAZOLE 40 MG TABLET PO SCH ×2 (10:43→22:17)
[2018-07-11] MEDS: MAGNESIUM OXIDE 400 MG TABLET PO SCH ×2 (10:43→22:17)
[2018-07-11] MEDS: VANCOMYCIN INJ 1,000 MG in SODIUM CHLORIDE 0.9% 250 ML IV SCH ×2 (10:46→22:19)
[2018-07-11] MEDS: VANCOMYCIN 50 MG/ML 60 ML/BOTTLE PO SCH ×2 (14:47→21:00)
[2018-07-11] MEDS: QUEtiapine 25 MG TABLET PO SCH (22:17)
[2018-07-11] MEDS: ATORVASTATIN 10 MG TABLET PO SCH (22:17)
[2018-07-11] MEDS: LACTOBACILLUS ACIDOPHILUS/BULGARICUS CAPLET PO SCH (22:17)
[2018-07-11] MEDS: ASPIRIN EC 81 MG TABLET PO SCH (22:18)
[2018-07-11] MEDS: METOPROLOL TARTRATE 50 MG TABLET PO SCH (23:41)
[2018-07-12] MEDS: ALBUTEROL/IPRATROPIUM 3 ML NEB RESP TX SCH ×3 (00:20→13:00)
[2018-07-12] MEDS: VANCOMYCIN 50 MG/ML 60 ML/BOTTLE PO SCH ×2 (02:55→09:48)
[2018-07-12 06:32] LABS: Basophils # 0.1 10*3/uL (0.0-0.2); Basophils % 0.8 % (0.0-0.8); Eosinophils # 0.1 10*3/uL (0.0-0.87); Eosinophils % 0.6 % (0.00-10.9); Hematocrit 33.9 VOL% (42.0-52.0); Hemoglobin 10.9 GM/DL (14.0-18.0); Immature Granulocytes Absolute 0.09 #; Lymphocytes # 2.1 10*3/uL (1.4-4.0); Lymphocytes % 23.1 % (21.2-54.2); Mean Corpuscular HGB Conc 32.2 GM/DL (32-36); Mean Corpuscular Hemoglobin 31 PG (27-34); Mean Corpuscular Volume 96.3 FL (87-102); Mean Platelet Volume 10.1 FL (9.6-12.0); Monocytes # 0.7 10*3/uL (0.11-0.8); Monocytes % 8.1 % (1.7-12.7); Neutrophils % 66.4 % (38.7-73.9); Platelet Count 168 T/CUMM (130-400); Red Blood Count 3.52 MC/CUMM (3.8-5.5); Red Cell Distribution Width 15.6 % (9.3-17.3)
[2018-07-12 06:55] LABS: Eosinophils 1 % (0-10); Lymphocytes 16 % (20-55); Platelet Estimate Adequate; Polychromasia Few; Segmented Neutrophils 80 % (50-85); Total Cells Counted 100
[2018-07-12 06:56] LABS: Atypical Lymphocytes Few; Smudge Cells Few
[2018-07-12 07:00] LABS: Albumin 2.4 G/DL (3.4-5.0); Bilirubin,Total 0.6 MG/DL (0.2-1.0); Calcium 7.3 MG/DL (8.5-10.1); Osmolality,Calculated 283.1 MOS/KG (273-304); Potassium 3.8 MMOL/L (3.5-5.1); Total Protein 5.5 G/DL (6.4-8.3)
[2018-07-12] MEDS: PANTOPRAZOLE 40 MG TABLET PO SCH (09:50)
[2018-07-12] MEDS: FUROSEMIDE 40 MG TABLET PO SCH (09:50)
[2018-07-12] MEDS: LACTOBACILLUS ACIDOPHILUS/BULGARICUS CAPLET PO SCH (09:50)
[2018-07-12] MEDS: MAGNESIUM OXIDE 400 MG TABLET PO SCH (09:50)
[2018-07-12] MEDS: VANCOMYCIN INJ 1,000 MG in SODIUM CHLORIDE 0.9% 250 ML IV SCH (11:12)
[2018-07-12 12:10] VITALS: BP 110/53
== END 2018-07-12 15:08 | DRG 194 ==
LOC: EDBD → EDUNIT# → N.ED 16:45 → N.EDINP 20:34 → SUATTDRO 20:34 → N.TELES 21:25
PROVIDERS: ADMIT Internal Medicine Geriatric Medicine; ATTEND Internal Medicine

== ENCOUNTER 2018-09-03 14:20 | Inpatient (IN) ==
[2018-09-03 16:06] LABS: Basophils % 0.3 % (0.0-0.8); Hematocrit 44.3 VOL% (42.0-52.0); Hemoglobin 14.1 GM/DL (14.0-18.0); Immature Granulocytes Absolute 1.48 #; Lymphocytes # 3.6 10*3/uL (1.4-4.0); Lymphocytes % 26.7 % (21.2-54.2); Mean Corpuscular HGB Conc 31.8 GM/DL (32-36); Mean Corpuscular Hemoglobin 31 PG (27-34); Mean Corpuscular Volume 96.7 FL (87-102); Mean Platelet Volume 10.2 FL (9.6-12.0); Monocytes # 1.6 10*3/uL (0.11-0.8); Monocytes % 12.2 % (1.7-12.7); Neutrophils # 6.7 10*3/uL (1.4-7.4); Neutrophils % 49.8 % (38.7-73.9); Platelet Count 193 T/CUMM (130-400); Red Blood Count 4.58 MC/CUMM (3.8-5.5); White Blood Count 13.5 T/CUMM (4-12)
[2018-09-03] MEDS ORDERED: METOCLOPRAMIDE 10 MG/2 ML VIAL IV STA (16:26)
[2018-09-03] MEDS ORDERED: LOPERAMIDE 2 MG CAPSULE PO STA (16:26)
[2018-09-03] MEDS ORDERED: ONDANSETRON 4 MG/2 ML VIAL IV STA (16:26)
[2018-09-03] MEDS ORDERED: PANTOPRAZOLE 40 MG VIAL IV STA (16:26)
[2018-09-03] MEDS ORDERED: DICYCLOMINE 20 MG/2 ML AMP IM ONE (16:26)
[2018-09-03] MEDS ORDERED: SODIUM CHLORIDE 0.9% 1,000 ML IV STA (16:26)
[2018-09-03] MEDS ORDERED: metroNIDAZOLE INJ 500 MG in PREMIX 1 EACH IV STA (16:26)
[2018-09-03] MEDS ORDERED: PANTOPRAZOLE 40 MG VIAL IV ONE (16:44)
[2018-09-03] MEDS ORDERED: ONDANSETRON 4 MG/2 ML VIAL ONE (16:44)
[2018-09-03] MEDS ORDERED: METOCLOPRAMIDE 10 MG/2 ML VIAL ONE (16:44)
[2018-09-03] MEDS ORDERED: LOPERAMIDE 2 MG CAPSULE ONE (16:45)
[2018-09-03 16:47] LABS: Atypical Lymphocytes Few; Lymphocytes 39 % (20-55); Platelet Estimate Adequate; Segmented Neutrophils 52 % (50-85); Total Cells Counted 100
[2018-09-03 17:23] LABS: Albumin 2.5 G/DL (3.4-5.0); Bilirubin,Total 0.6 MG/DL (0.2-1.0); Calcium 7.7 MG/DL (8.5-10.1); Osmolality,Calculated 279.7 MOS/KG (273-304); Potassium 4.2 MMOL/L (3.5-5.1); Total Protein 6.5 G/DL (6.4-8.3)
[2018-09-03 18:08] LABS: Amylase 32 U/L (25-115); Troponin I 0.021 NG/ML (0.00-0.045)
[2018-09-03] MEDS ORDERED: ACETAMINOPHEN 325 MG TABLET PO PRN (21:22)
[2018-09-03] MEDS: LACTOBACILLUS ACIDOPHILUS/BULGARICUS CAPLET PO SCH (21:45)
[2018-09-03] MEDS: SODIUM CHLORIDE 0.9% 1,000 ML IV SCH (21:46)
[2018-09-03] MEDS: VANCOMYCIN 50 MG/ML 60 ML/BOTTLE PO SCH (21:55)
[2018-09-03] MEDS: ASPIRIN EC 81 MG TABLET PO SCH (21:57)
[2018-09-03] MEDS: CHOLESTYRAMINE/ASPARTAME 4 GM PACK PO SCH (22:00)
[2018-09-04] MEDS: ALBUTEROL/IPRATROPIUM 3 ML NEB RESP TX SCH ×4 (00:28→19:09)
[2018-09-04] MEDS: VANCOMYCIN 50 MG/ML 60 ML/BOTTLE PO SCH ×4 (03:56→22:30)
[2018-09-04 03:59] LABS: Basophils % 0.5 % (0.0-0.8); Hemoglobin 11.8 GM/DL (14.0-18.0); Immature Granulocytes % 13.8 %; Immature Granulocytes Absolute 1.06 #; Lymphocytes # 1.5 10*3/uL (1.4-4.0); Mean Corpuscular HGB Conc 31.1 GM/DL (32-36); Mean Corpuscular Hemoglobin 30 PG (27-34); Mean Platelet Volume 10.4 FL (9.6-12.0); Monocytes % 12.4 % (1.7-12.7); Neutrophils # 4.1 10*3/uL (1.4-7.4); Neutrophils % 53.3 % (38.7-73.9); Platelet Count 171 T/CUMM (130-400); Red Cell Distribution Width 13.9 % (9.3-17.3); White Blood Count 7.7 T/CUMM (4-12)
[2018-09-04 04:20] LABS: Calcium 6.9 MG/DL (8.5-10.1); Osmolality,Calculated 293.7 MOS/KG (273-304); Potassium 3.8 MMOL/L (3.5-5.1)
[2018-09-04 04:42] LABS: Band Neutrophils 3 % (0-10); Lymphocytes 22 % (20-55); Metamyelocytes 2 %; Platelet Estimate Adequate; Segmented Neutrophils 53 % (50-85); Total Cells Counted 100
[2018-09-04 07:15] LABS: Apearance,Urine CLOUDY (Clear); Bacteria,Urine Many /HPF (Few); Bilirubin,Urine Negative (Negative); Blood, Urine Small mg/dL (Negative); Glucose,Urine (UA) Negative (Negative); Ketones,Urine Negative (Negative); Mucus,Urine Many /LPF (Occasional); Nitrite,Urine Negative (Negative); Protein,Urine Negative; RBC,Urine 3 /HPF (0-4); Urine Color Amber (Yellow); Urine Specific Gravity 1.018 (1.001-1.035); Urine Urobilinogen < 2.0 EU/DL (0.2-1.0); WBC,Urine 4 /HPF (0-6)
[2018-09-04] MEDS: LACTOBACILLUS ACIDOPHILUS/BULGARICUS CAPLET PO SCH ×2 (08:27→21:54)
[2018-09-04] MEDS: CHOLESTYRAMINE/ASPARTAME 4 GM PACK PO SCH ×2 (08:38→21:53)
[2018-09-04 09:22] LABS: Immunoglobulin A 121 MG/DL (70-400); Immunoglobulin G 637 MG/DL (700-1600); Immunoglobulin M < 21 MG/DL (40-230); Total Protein 5.2 G/DL (6.4-8.3)
[2018-09-04] MEDS ORDERED: METOPROLOL TARTRATE 5 MG/5 ML VIAL IV ONE (09:24)
[2018-09-04 09:35] LABS: Immunoglobulin A (Chem) 121 MG/DL (70-400); Immunoglobulin G (Chem) 637 MG/DL (700-1600); Immunoglobulin M (Chem) < 21 MG/DL (40-230); Total Protein (Chem) 5.2 G/DL (6.4-8.3)
[2018-09-04] MEDS: SODIUM CHLORIDE 0.9% 1,000 ML IV SCH ×2 (09:39→17:48)
[2018-09-04 11:09] LABS: Immuno Free Light Chain Kappa 3.16 MG/DL (0.33-1.94); Immuno Free Light Chain Lambda 1.48 MG/DL (0.57-2.63); Immuno Free Light Chain Ratio 2.14 MG/DL (0.26-1.65)
[2018-09-04 13:09] LABS: Albumin (SPE) 2.7 G/DL (3.2-5.3); Albumin (SPE) Rel % 52.5 %; Alpha 1 (SPE) 0.3 G/DL (0.1-0.4); Alpha 1 (SPE) Rel % 6.5 %; Alpha 2 (SPE) 0.9 G/DL (0.4-1.0); Alpha 2 (SPE) Rel % 17.4 %; Beta (SPE) 0.7 G/DL (0.5-1.1); Beta (SPE) Rel % 12.9 %; Gamma (SPE) 0.6 G/DL (0.7-1.7); Gamma (SPE) Rel % 10.7 %
[2018-09-04] MEDS ORDERED: MAGNESIUM SULF RIDER 2 GM in PREMIX 1 EACH IV PRN (15:11)
[2018-09-04] MEDS ORDERED: POTASSIUM CHLORIDE 20 MEQ TABLET PO PRN (15:11)
[2018-09-04] MEDS ORDERED: MAGNESIUM SULF RIDER 4 GM in PREMIX 1 EACH IV PRN (15:11)
[2018-09-04] MEDS ORDERED: DILTIAZEM 25 MG/5 ML VIAL IV ONE (17:36)
[2018-09-04] MEDS ORDERED: METOPROLOL TARTRATE 50 MG TABLET PO SCH (21:00)
[2018-09-04] MEDS ORDERED: dilTIAZem Drip 125 MG/125 ML PREMIX IV SCH (21:30)
[2018-09-04] MEDS: ASPIRIN EC 81 MG TABLET PO SCH (21:53)
[2018-09-04] MEDS: QUEtiapine 25 MG TABLET PO SCH (21:53)
[2018-09-04] MEDS: APIXABAN 2.5 MG TABLET PO SCH (21:53)
[2018-09-04] MEDS: ATORVASTATIN 10 MG TABLET PO SCH (21:54)
[2018-09-04] MEDS: METOPROLOL TARTRATE 50 MG TABLET PO SCH (21:54)
[2018-09-05] MEDS: ALBUTEROL/IPRATROPIUM 3 ML NEB RESP TX SCH ×4 (00:49→20:37)
[2018-09-05] MEDS: SODIUM CHLORIDE 0.9% 1,000 ML IV SCH ×3 (02:50→18:23)
[2018-09-05] MEDS: VANCOMYCIN 50 MG/ML 60 ML/BOTTLE PO SCH ×4 (02:50→21:43)
[2018-09-05 05:23] LABS: Basophils # 0.1 10*3/uL (0.0-0.2); Basophils % 0.7 % (0.0-0.8); Eosinophils % 0.1 % (0.00-10.9); Hematocrit 38.8 VOL% (42.0-52.0); Hemoglobin 12.1 GM/DL (14.0-18.0); Immature Granulocytes % 10.4 %; Lymphocytes # 1.9 10*3/uL (1.4-4.0); Lymphocytes % 25.2 % (21.2-54.2); Mean Corpuscular HGB Conc 31.2 GM/DL (32-36); Mean Corpuscular Hemoglobin 30 PG (27-34); Mean Corpuscular Volume 97.5 FL (87-102); Mean Platelet Volume 10.5 FL (9.6-12.0); Monocytes # 1.1 10*3/uL (0.11-0.8); Monocytes % 14.8 % (1.7-12.7); Neutrophils # 3.8 10*3/uL (1.4-7.4); Neutrophils % 48.8 % (38.7-73.9); Platelet Count 154 T/CUMM (130-400); Red Blood Count 3.98 MC/CUMM (3.8-5.5); Red Cell Distribution Width 13.9 % (9.3-17.3); White Blood Count 7.7 T/CUMM (4-12)
[2018-09-05 05:55] LABS: Band Neutrophils 2 % (0-10); Lymphocytes 26 % (20-55); Platelet Estimate Decreased; Segmented Neutrophils 61 % (50-85); Total Cells Counted 100
[2018-09-05 05:57] LABS: Alanine Aminotransferase < 9 U/L (16-61); Albumin 1.7 G/DL (3.4-5.0); Alkaline Phosphatase 49 U/L (45-117); Aspartate Amino Transferase 18 U/L (0-37); Blood Urea Nitrogen 35 MG/DL (7-18); Calcium 6.3 MG/DL (8.5-10.1); Glucose 123 MG/DL (74-106); Osmolality,Calculated 294.8 MOS/KG (273-304); Potassium 4.7 MMOL/L (3.5-5.1); Sodium 144 MMOL/L (136-145); Total Protein 4.2 G/DL (6.4-8.3)
[2018-09-05] MEDS: CHOLESTYRAMINE/ASPARTAME 4 GM PACK PO SCH ×2 (10:49→21:43)
[2018-09-05] MEDS: APIXABAN 2.5 MG TABLET PO SCH ×2 (10:49→21:43)
[2018-09-05] MEDS: METOPROLOL TARTRATE 50 MG TABLET PO SCH ×2 (10:49→21:43)
[2018-09-05] MEDS: FOLIC ACID 1 MG TABLET PO SCH (10:49)
[2018-09-05] MEDS: LACTOBACILLUS ACIDOPHILUS/BULGARICUS CAPLET PO SCH ×2 (10:49→21:42)
[2018-09-05] MEDS: cefTRIAXone 1,000 MG in SYRINGE 1 EACH IV SCH (18:13)
[2018-09-05] MEDS: QUEtiapine 25 MG TABLET PO SCH (21:43)
[2018-09-05] MEDS: ATORVASTATIN 10 MG TABLET PO SCH (21:43)
[2018-09-05] MEDS: ASPIRIN EC 81 MG TABLET PO SCH (21:43)
[2018-09-06] MEDS: ALBUTEROL/IPRATROPIUM 3 ML NEB RESP TX SCH ×4 (01:54→18:39)
[2018-09-06] MEDS: SODIUM CHLORIDE 0.9% 1,000 ML IV SCH ×3 (02:50→17:11)
[2018-09-06] MEDS: VANCOMYCIN 50 MG/ML 60 ML/BOTTLE PO SCH ×4 (02:50→22:58)
[2018-09-06 04:54] LABS: Basophils % 0.5 % (0.0-0.8); Eosinophils % 0.7 % (0.00-10.9); Hematocrit 38.6 VOL% (42.0-52.0); Hemoglobin 12.1 GM/DL (14.0-18.0); Immature Granulocytes % 17.8 %; Immature Granulocytes Absolute 1.04 #; Lymphocytes # 1.5 10*3/uL (1.4-4.0); Lymphocytes % 25.7 % (21.2-54.2); Mean Corpuscular HGB Conc 31.3 GM/DL (32-36); Mean Corpuscular Hemoglobin 31 PG (27-34); Mean Corpuscular Volume 97.2 FL (87-102); Monocytes # 0.7 10*3/uL (0.11-0.8); Monocytes % 11.1 % (1.7-12.7); NRBC # 0.02 10*3/uL; Neutrophils # 2.6 10*3/uL (1.4-7.4); Neutrophils % 44.2 % (38.7-73.9); Platelet Count 149 T/CUMM (130-400); Red Blood Count 3.97 MC/CUMM (3.8-5.5); Red Cell Distribution Width 14.1 % (9.3-17.3); White Blood Count 5.8 T/CUMM (4-12)
[2018-09-06 05:12] LABS: Band Neutrophils 5 % (0-10); Eosinophils 1 % (0-10); Hypochromasia 1+; Lymphocytes 25 % (20-55); Platelet Estimate Adequate; Segmented Neutrophils 57 % (50-85); Total Cells Counted 100
[2018-09-06 05:13] LABS: Ovalocytes Slight
[2018-09-06 05:17] LABS: Alanine Aminotransferase 10 U/L (16-61); Albumin 1.5 G/DL (3.4-5.0); Alkaline Phosphatase 46 U/L (45-117); Aspartate Amino Transferase 23 U/L (0-37); Bilirubin,Total < 0.39 MG/DL (0.2-1.0); Blood Urea Nitrogen 40 MG/DL (7-18); Calcium 6.5 MG/DL (8.5-10.1); Glucose 131 MG/DL (74-106); Osmolality,Calculated 294.1 MOS/KG (273-304); Potassium 4.8 MMOL/L (3.5-5.1); Sodium 142 MMOL/L (136-145); Total Protein 4.5 G/DL (6.4-8.3)
[2018-09-06] MEDS: LACTOBACILLUS ACIDOPHILUS/BULGARICUS CAPLET PO SCH ×2 (08:59→22:56)
[2018-09-06] MEDS: CHOLESTYRAMINE/ASPARTAME 4 GM PACK PO SCH ×2 (08:59→22:58)
[2018-09-06] MEDS: METOPROLOL TARTRATE 50 MG TABLET PO SCH ×2 (08:59→22:57)
[2018-09-06] MEDS: FOLIC ACID 1 MG TABLET PO SCH (08:59)
[2018-09-06] MEDS: APIXABAN 2.5 MG TABLET PO SCH ×2 (08:59→22:57)
[2018-09-06] MEDS: cefTRIAXone 1,000 MG in SYRINGE 1 EACH IV SCH (17:09)
[2018-09-06] MEDS: ASPIRIN EC 81 MG TABLET PO SCH (22:56)
[2018-09-06] MEDS: QUEtiapine 25 MG TABLET PO SCH (22:57)
[2018-09-06] MEDS: ATORVASTATIN 10 MG TABLET PO SCH (22:57)
[2018-09-06] MEDS: ONDANSETRON 4 MG/2 ML VIAL IV PRN (23:39)
[2018-09-07] MEDS: ALBUTEROL/IPRATROPIUM 3 ML NEB RESP TX SCH ×2 (00:41→07:06)
[2018-09-07] MEDS: VANCOMYCIN 50 MG/ML 60 ML/BOTTLE PO SCH ×2 (03:40→09:37)
[2018-09-07 04:33] LABS: Basophils % 0.7 % (0.0-0.8); Eosinophils % 0.2 % (0.00-10.9); Hematocrit 41.1 VOL% (42.0-52.0); Hemoglobin 12.9 GM/DL (14.0-18.0); Immature Granulocytes % 17.4 %; Immature Granulocytes Absolute 0.97 #; Lymphocytes % 18.1 % (21.2-54.2); Mean Corpuscular HGB Conc 31.4 GM/DL (32-36); Mean Corpuscular Hemoglobin 30 PG (27-34); Mean Corpuscular Volume 95.8 FL (87-102); Mean Platelet Volume 10.9 FL (9.6-12.0); Monocytes # 0.5 10*3/uL (0.11-0.8); Monocytes % 9.3 % (1.7-12.7); Neutrophils % 54.3 % (38.7-73.9); Platelet Count 218 T/CUMM (130-400); Red Blood Count 4.29 MC/CUMM (3.8-5.5); Red Cell Distribution Width 14.2 % (9.3-17.3); White Blood Count 5.6 T/CUMM (4-12)
[2018-09-07 05:02] LABS: Albumin 1.8 G/DL (3.4-5.0); Bilirubin,Total 0.4 MG/DL (0.2-1.0); Osmolality,Calculated 301.4 MOS/KG (273-304); Potassium 4.4 MMOL/L (3.5-5.1); Total Protein 4.9 G/DL (6.4-8.3)
[2018-09-07] MEDS: ONDANSETRON 4 MG/2 ML VIAL IV PRN (05:10)
[2018-09-07 05:43] LABS: Band Neutrophils 9 % (0-10); Lymphocytes 12 % (20-55); Segmented Neutrophils 67 % (50-85); Total Cells Counted 100
[2018-09-07 05:44] LABS: Giant Platelets Few; Hypochromasia 1+; Platelet Estimate Adequate
[2018-09-07] MEDS: LACTOBACILLUS ACIDOPHILUS/BULGARICUS CAPLET PO SCH (09:36)
[2018-09-07] MEDS: APIXABAN 2.5 MG TABLET PO SCH (09:36)
[2018-09-07] MEDS: METOPROLOL TARTRATE 50 MG TABLET PO SCH (09:36)
[2018-09-07] MEDS: CHOLESTYRAMINE/ASPARTAME 4 GM PACK PO SCH (09:36)
[2018-09-07] MEDS: FOLIC ACID 1 MG TABLET PO SCH (09:36)
[2018-09-07 12:10] VITALS: BP 110/67
== END 2018-09-07 15:31 | DRG 371 ==
LOC: N.ED 14:20 → N.EDINP 18:44 → N.2E 21:27 → N.TELEN 09-04 17:55
PROVIDERS: ADMIT Internal Medicine; ATTEND Internal Medicine

== ENCOUNTER 2018-09-11 20:00 | Inpatient (IN) ==
[2018-09-11] MEDS ORDERED: SODIUM CHLORIDE 0.9% 1,000 ML IV STA (20:47)
[2018-09-11 22:11] LABS: PT Patient Result 11.2 SECS
[2018-09-11 22:13] LABS: Basophils % 0.4 % (0.0-0.8); Eosinophils % 0.1 % (0.00-10.9); Hematocrit 50.1 VOL% (42.0-52.0); Hemoglobin 15.2 GM/DL (14.0-18.0); Immature Granulocytes % 2.9 %; Immature Granulocytes Absolute 0.26 #; Lymphocytes # 2.9 10*3/uL (1.4-4.0); Lymphocytes % 32.6 % (21.2-54.2); Mean Corpuscular HGB Conc 30.3 GM/DL (32-36); Mean Corpuscular Hemoglobin 30 PG (27-34); Mean Corpuscular Volume 98.2 FL (87-102); Mean Platelet Volume 10.7 FL (9.6-12.0); Monocytes # 0.5 10*3/uL (0.11-0.8); Monocytes % 5.6 % (1.7-12.7); Neutrophils # 5.2 10*3/uL (1.4-7.4); Neutrophils % 58.4 % (38.7-73.9); Platelet Count 224 T/CUMM (130-400); Red Cell Distribution Width 14.6 % (9.3-17.3)
[2018-09-11 22:20] LABS: Alanine Aminotransferase 15 U/L (16-61); Albumin 2.2 G/DL (3.4-5.0); Alkaline Phosphatase 70 U/L (45-117); Aspartate Amino Transferase 38 U/L (0-37); Blood Urea Nitrogen 52 MG/DL (7-18); Calcium 7.3 MG/DL (8.5-10.1); Glucose 82 MG/DL (74-106); Osmolality,Calculated 315.6 MOS/KG (273-304); Potassium 5.2 MMOL/L (3.5-5.1); Sodium 153 MMOL/L (136-145); Total Protein 5.7 G/DL (6.4-8.3); Troponin I 0.021 NG/ML (0.00-0.045)
[2018-09-11 22:23] LABS: Ammonia 22 UMOL/L (11-32)
[2018-09-11 22:43] LABS: Band Neutrophils 36 % (0-10); Lymphocytes 16 % (20-55); Segmented Neutrophils 44 % (50-85)
[2018-09-11 22:45] LABS: Platelet Estimate Increased; Polychromasia Few
[2018-09-11 22:46] LABS: Microcytosis Slight; Total Cells Counted 100
[2018-09-12] MEDS ORDERED: MEPERIDINE 25 MG/1 ML VIAL IV PRN (00:28)
[2018-09-12] MEDS ORDERED: ONDANSETRON 4 MG/2 ML VIAL IV PRN (00:28)
[2018-09-12] MEDS ORDERED: ACETAMINOPHEN 325 MG TABLET PO PRN (00:28)
[2018-09-12 00:52] LABS: Apearance,Urine CLOUDY (Clear); Bilirubin,Urine Negative (Negative); Blood, Urine Small mg/dL (Negative); Glucose,Urine (UA) Negative (Negative); Hyaline Casts,Urine 7 /LPF (0-3); Ketones,Urine Negative (Negative); Mucus,Urine Occasional /LPF (Occasional); Nitrite,Urine Negative (Negative); Protein,Urine Negative; Squamous Epithelial Cell,Urine Occasional /HPF (0-10); Urine Color Yellow (Yellow); Urine Specific Gravity 1.017 (1.001-1.035); Urine Urobilinogen < 2.0 EU/DL (0.2-1.0); WBC,Urine 84 /HPF (0-6)
[2018-09-12] MEDS: SODIUM CHLORIDE 0.45% 1,000 ML IV SCH ×3 (02:30→13:00)
[2018-09-12 05:46] LABS: Basophils % 0.3 % (0.0-0.8); Hematocrit 41.6 VOL% (42.0-52.0); Hemoglobin 12.7 GM/DL (14.0-18.0); Immature Granulocytes % 2.5 %; Immature Granulocytes Absolute 0.22 #; Lymphocytes # 2.2 10*3/uL (1.4-4.0); Lymphocytes % 24.2 % (21.2-54.2); Mean Corpuscular HGB Conc 30.5 GM/DL (32-36); Mean Corpuscular Hemoglobin 30 PG (27-34); Mean Corpuscular Volume 97.7 FL (87-102); Mean Platelet Volume 10.4 FL (9.6-12.0); Monocytes # 0.9 10*3/uL (0.11-0.8); Monocytes % 10.2 % (1.7-12.7); Neutrophils # 5.6 10*3/uL (1.4-7.4); Neutrophils % 62.8 % (38.7-73.9); Platelet Count 225 T/CUMM (130-400); Red Blood Count 4.26 MC/CUMM (3.8-5.5); Red Cell Distribution Width 14.6 % (9.3-17.3); White Blood Count 8.9 T/CUMM (4-12)
[2018-09-12] MEDS ORDERED: VANCOMYCIN 50 MG/ML 60 ML/BOTTLE PO SCH ×2 (06:00→12:00)
[2018-09-12 06:14] LABS: Microcytosis 1+; Ovalocytes Slight
[2018-09-12 06:19] LABS: Calcium 7.1 MG/DL (8.5-10.1); Osmolality,Calculated 316.4 MOS/KG (273-304); Potassium 4.5 MMOL/L (3.5-5.1)
[2018-09-12] MEDS: cefTRIAXone 1,000 MG in SYRINGE 1 EACH IV SCH (10:05)
[2018-09-12] MEDS: METOPROLOL TARTRATE 25 MG TABLET PO SCH (12:47)
[2018-09-12] MEDS: ALBUTEROL/IPRATROPIUM 3 ML NEB RESP TX SCH ×2 (13:18→20:40)
[2018-09-12] MEDS: VANCOMYCIN 50 MG/ML 60 ML/BOTTLE PO SCH (18:28)
[2018-09-12] MEDS: LACTOBACILLUS RHAMNOSUS GG CAPSULE PO SCH (21:59)
[2018-09-12] MEDS: METOPROLOL TARTRATE 50 MG TABLET PO SCH (21:59)
[2018-09-13] MEDS: SODIUM CHLORIDE 0.45% 1,000 ML IV SCH ×2 (00:32→05:57)
[2018-09-13] MEDS: VANCOMYCIN 50 MG/ML 60 ML/BOTTLE PO SCH ×4 (00:32→17:15)
[2018-09-13] MEDS: ALBUTEROL/IPRATROPIUM 3 ML NEB RESP TX SCH ×4 (01:29→19:05)
[2018-09-13 06:25] LABS: Basophils % 0.3 % (0.0-0.8); Eosinophils % 0.1 % (0.00-10.9); Hematocrit 41.8 VOL% (42.0-52.0); Hemoglobin 12.6 GM/DL (14.0-18.0); Immature Granulocytes % 1.6 %; Immature Granulocytes Absolute 0.12 #; Lymphocytes % 27.1 % (21.2-54.2); Mean Corpuscular HGB Conc 30.1 GM/DL (32-36); Mean Corpuscular Hemoglobin 30 PG (27-34); Mean Corpuscular Volume 98.4 FL (87-102); Mean Platelet Volume 10.3 FL (9.6-12.0); Monocytes # 0.9 10*3/uL (0.11-0.8); Monocytes % 11.6 % (1.7-12.7); Neutrophils # 4.3 10*3/uL (1.4-7.4); Neutrophils % 59.3 % (38.7-73.9); Platelet Count 194 T/CUMM (130-400); Red Blood Count 4.25 MC/CUMM (3.8-5.5); Red Cell Distribution Width 14.7 % (9.3-17.3); White Blood Count 7.3 T/CUMM (4-12)
[2018-09-13 06:42] LABS: Osmolality,Calculated 312.3 MOS/KG (273-304); Potassium 4.4 MMOL/L (3.5-5.1)
[2018-09-13 06:49] LABS: Band Neutrophils 4 % (0-10); Eosinophils 1 % (0-10); Lymphocytes 24 % (20-55); Platelet Estimate Adequate; Segmented Neutrophils 70 % (50-85); Total Cells Counted 100
[2018-09-13 06:50] LABS: Atypical Lymphocytes Few; Hypochromasia 1+; Microcytosis Slight
[2018-09-13] MEDS: LACTOBACILLUS RHAMNOSUS GG CAPSULE PO SCH (08:41)
[2018-09-13] MEDS: cefTRIAXone 1,000 MG in SYRINGE 1 EACH IV SCH (08:47)
[2018-09-13] MEDS: METOPROLOL TARTRATE 25 MG TABLET PO SCH (08:47)
[2018-09-13] MEDS: DEXTROSE 5% 1,000 ML IV SCH ×2 (12:47→22:36)
[2018-09-13] MEDS: FLUCONAZOLE INJ 200 MG in PREMIX 1 EACH IV SCH (12:47)
[2018-09-13] MEDS ORDERED: LIDOCAINE 2% TOP JELLY 20 ML VIAL INTRAURETH ONE (17:53)
[2018-09-14] MEDS: ALBUTEROL/IPRATROPIUM 3 ML NEB RESP TX SCH ×4 (00:19→19:56)
[2018-09-14] MEDS: METOPROLOL TARTRATE 50 MG TABLET PO SCH ×2 (01:40→20:59)
[2018-09-14] MEDS: LACTOBACILLUS RHAMNOSUS GG CAPSULE PO SCH ×3 (01:40→20:59)
[2018-09-14] MEDS: QUEtiapine 25 MG TABLET PO SCH ×2 (01:41→21:00)
[2018-09-14] MEDS: VANCOMYCIN 50 MG/ML 60 ML/BOTTLE PO SCH ×5 (01:41→23:23)
[2018-09-14] MEDS: DEXTROSE 5% 1,000 ML IV SCH ×2 (05:14→18:38)
[2018-09-14 05:51] LABS: Calcium 6.6 MG/DL (8.5-10.1); Osmolality,Calculated 307.6 MOS/KG (273-304); Potassium 4.2 MMOL/L (3.5-5.1)
[2018-09-14] MEDS: cefTRIAXone 1,000 MG in SYRINGE 1 EACH IV SCH (10:26)
[2018-09-14] MEDS: METOPROLOL TARTRATE 25 MG TABLET PO SCH (10:36)
[2018-09-14] MEDS: FLUCONAZOLE INJ 200 MG in PREMIX 1 EACH IV SCH (11:32)
[2018-09-15] MEDS: ALBUTEROL/IPRATROPIUM 3 ML NEB RESP TX SCH ×4 (00:02→19:22)
[2018-09-15] MEDS: DEXTROSE 5% 1,000 ML IV SCH ×3 (03:40→20:58)
[2018-09-15] MEDS: VANCOMYCIN 50 MG/ML 60 ML/BOTTLE PO SCH ×3 (05:55→17:13)
[2018-09-15] MEDS: METOPROLOL TARTRATE 25 MG TABLET PO SCH (08:44)
[2018-09-15] MEDS: LACTOBACILLUS RHAMNOSUS GG CAPSULE PO SCH ×2 (08:44→20:58)
[2018-09-15] MEDS: FLUCONAZOLE INJ 200 MG in PREMIX 1 EACH IV SCH (11:22)
[2018-09-15] MEDS: QUEtiapine 25 MG TABLET PO SCH (20:58)
[2018-09-15] MEDS: METOPROLOL TARTRATE 50 MG TABLET PO SCH (20:58)
[2018-09-16] MEDS: VANCOMYCIN 50 MG/ML 60 ML/BOTTLE PO SCH ×4 (00:15→18:30)
[2018-09-16] MEDS: ALBUTEROL/IPRATROPIUM 3 ML NEB RESP TX SCH ×4 (00:23→20:13)
[2018-09-16] MEDS: METOPROLOL TARTRATE 25 MG TABLET PO SCH (09:12)
[2018-09-16] MEDS: LACTOBACILLUS RHAMNOSUS GG CAPSULE PO SCH ×2 (09:12→21:06)
[2018-09-16] MEDS: DEXTROSE 5% 1,000 ML IV SCH ×3 (12:51→21:05)
[2018-09-16] MEDS: FLUCONAZOLE INJ 200 MG in PREMIX 1 EACH IV SCH (12:51)
[2018-09-16] MEDS: QUEtiapine 25 MG TABLET PO SCH (21:05)
[2018-09-16] MEDS: METOPROLOL TARTRATE 50 MG TABLET PO SCH (21:06)
[2018-09-17] MEDS: VANCOMYCIN 50 MG/ML 60 ML/BOTTLE PO SCH ×3 (00:27→21:22)
[2018-09-17] MEDS: ALBUTEROL/IPRATROPIUM 3 ML NEB RESP TX SCH ×4 (00:45→20:04)
[2018-09-17] MEDS: LACTOBACILLUS RHAMNOSUS GG CAPSULE PO SCH ×3 (08:21→21:20)
[2018-09-17] MEDS: DEXTROSE 5% 1,000 ML IV SCH ×3 (08:21→21:55)
[2018-09-17] MEDS: METOPROLOL TARTRATE 25 MG TABLET PO SCH ×3 (08:21→21:22)
[2018-09-17] MEDS: SUCRALFATE 1 GM/10 ML UDCUP PO SCH ×3 (12:56→21:22)
[2018-09-17] MEDS: FLUCONAZOLE INJ 200 MG in PREMIX 1 EACH IV SCH (12:56)
[2018-09-17] MEDS ORDERED: FLUCONAZOLE 200 MG TABLET PO ONE (14:46)
[2018-09-18] MEDS: ALBUTEROL/IPRATROPIUM 3 ML NEB RESP TX SCH ×4 (01:36→18:55)
[2018-09-18 07:51] LABS: Osmolality,Calculated 266.2 MOS/KG (273-304); Potassium 3.9 MMOL/L (3.5-5.1)
[2018-09-18] MEDS: SUCRALFATE 1 GM/10 ML UDCUP PO SCH ×4 (09:45→21:58)
[2018-09-18] MEDS: DEXTROSE 5% 1,000 ML IV SCH ×2 (12:22→18:21)
[2018-09-18] MEDS: LACTOBACILLUS RHAMNOSUS GG CAPSULE PO SCH ×2 (12:24→21:58)
[2018-09-18] MEDS: FLUCONAZOLE 100 MG TABLET PO SCH (12:25)
[2018-09-18] MEDS: METOPROLOL TARTRATE 25 MG TABLET PO SCH ×2 (12:25→21:57)
[2018-09-18] MEDS: VANCOMYCIN 50 MG/ML 60 ML/BOTTLE PO SCH ×2 (12:25→21:58)
[2018-09-18 12:30] LABS: Basophils % 0.5 % (0.0-0.8); Eosinophils % 0.2 % (0.00-10.9); Hematocrit 36.7 VOL% (42.0-52.0); Immature Granulocytes % 0.6 %; Immature Granulocytes Absolute 0.04 #; Lymphocytes # 1.9 10*3/uL (1.4-4.0); Lymphocytes % 29.8 % (21.2-54.2); Mean Corpuscular HGB Conc 32.7 GM/DL (32-36); Mean Corpuscular Hemoglobin 30 PG (27-34); Mean Corpuscular Volume 92.7 FL (87-102); Mean Platelet Volume 10.4 FL (9.6-12.0); Monocytes # 0.8 10*3/uL (0.11-0.8); Monocytes % 12.2 % (1.7-12.7); Neutrophils # 3.6 10*3/uL (1.4-7.4); Neutrophils % 56.7 % (38.7-73.9); Platelet Count 177 T/CUMM (130-400); Red Blood Count 3.96 MC/CUMM (3.8-5.5); Red Cell Distribution Width 14.8 % (9.3-17.3); White Blood Count 6.4 T/CUMM (4-12)
[2018-09-18 12:56] LABS: Calcium 6.2 MG/DL (8.5-10.1); Osmolality,Calculated 270.8 MOS/KG (273-304); Potassium 3.9 MMOL/L (3.5-5.1)
[2018-09-18 14:26] LABS: Band Neutrophils 12 % (0-10); Lymphocytes 21 % (20-55); Segmented Neutrophils 63 % (50-85); Total Cells Counted 100
[2018-09-18 14:27] LABS: Platelet Estimate Adequate
[2018-09-18] MEDS ORDERED: ETOMIDATE 20 MG/10 ML VIAL IV ONE (23:32)
[2018-09-18] MEDS ORDERED: LIDOCAINE 100 MG/5 ML SYRINGE ONE (23:32)
[2018-09-18] MEDS ORDERED: PROPOFOL 200 MG/20 ML VIAL IV ONE (23:32)
[2018-09-19] MEDS: ALBUTEROL/IPRATROPIUM 3 ML NEB RESP TX SCH ×4 (00:50→19:29)
[2018-09-19] MEDS: DEXTROSE 5% 1,000 ML IV SCH ×4 (02:50→20:00)
[2018-09-19] MEDS: LACTOBACILLUS RHAMNOSUS GG CAPSULE PO SCH ×2 (08:40→22:47)
[2018-09-19] MEDS: SUCRALFATE 1 GM/10 ML UDCUP PO SCH ×4 (08:40→22:44)
[2018-09-19] MEDS: METOPROLOL TARTRATE 25 MG TABLET PO SCH ×2 (08:40→22:49)
[2018-09-19] MEDS: FLUCONAZOLE 100 MG TABLET PO SCH (08:40)
[2018-09-19] MEDS: VANCOMYCIN 50 MG/ML 60 ML/BOTTLE PO SCH ×2 (08:40→22:43)
[2018-09-19] MEDS ORDERED: MIRTAZAPINE 15 MG TABLET PO SCH (21:00)
[2018-09-19] MEDS: PANTOPRAZOLE 40 MG VIAL IV SCH (22:49)
[2018-09-20] MEDS: ALBUTEROL/IPRATROPIUM 3 ML NEB RESP TX SCH ×3 (01:18→14:11)
[2018-09-20] MEDS: PANTOPRAZOLE 40 MG VIAL IV SCH (09:32)
[2018-09-20] MEDS: SUCRALFATE 1 GM/10 ML UDCUP PO SCH ×2 (09:32→12:10)
[2018-09-20] MEDS: VANCOMYCIN 50 MG/ML 60 ML/BOTTLE PO SCH (09:32)
[2018-09-20] MEDS: METOPROLOL TARTRATE 25 MG TABLET PO SCH (09:33)
[2018-09-20] MEDS: FLUCONAZOLE 100 MG TABLET PO SCH (09:33)
[2018-09-20] MEDS: LACTOBACILLUS RHAMNOSUS GG CAPSULE PO SCH (09:33)
[2018-09-20] MEDS: DEXTROSE 5% 1,000 ML IV SCH (09:33)
[2018-09-20 11:12] VITALS: BP 117/60
[2018-09-24] MEDS ORDERED: VANCOMYCIN 50 MG/ML 60 ML/BOTTLE PO SCH (09:00)
== END 2018-09-20 14:45 | DRG 727 ==
LOC: EDUNIT# → N.ED 20:00 → N.EDINP 23:32 → SUATTDRO 23:32 → N.3E 09-12 00:58
PROVIDERS: ADMIT Internal Medicine; ATTEND Internal Medicine

== ENCOUNTER 2018-10-01 14:49 | Inpatient (IN) ==
[2018-10-01] MEDS ORDERED: SODIUM CHLORIDE 0.9% 1,000 ML IV STA (15:33)
[2018-10-01 16:45] LABS: Apearance,Urine CLOUDY (Clear); Bacteria,Urine Occasional /HPF (Few); Bilirubin,Urine Negative (Negative); Blood, Urine Moderate mg/dL (Negative); Glucose,Urine (UA) Negative (Negative); Ketones,Urine Negative (Negative); Nitrite,Urine Positive (Negative); Protein,Urine 30 MG/DL; RBC,Urine 21 /HPF (0-4); Urine Color Dark yellow (Yellow); Urine Specific Gravity 1.015 (1.001-1.035); Urine Urobilinogen < 2.0 EU/DL (0.2-1.0); WBC,Urine 1049 /HPF (0-6)
[2018-10-01 16:45] LABS: INR 1.1; PT Patient Result 12.1 SECS; Partial Thromboplastin Time 25.3 SECS (0-40)
[2018-10-01 16:59] LABS: Alanine Aminotransferase 11 U/L (16-61); Albumin 1.6 G/DL (3.4-5.0); Alkaline Phosphatase 55 U/L (45-117); Aspartate Amino Transferase 27 U/L (0-37); Bilirubin,Total < 0.39 MG/DL (0.2-1.0); Blood Urea Nitrogen 40 MG/DL (7-18); Calcium 6.4 MG/DL (8.5-10.1); Glucose 76 MG/DL (74-106); Potassium 3.8 MMOL/L (3.5-5.1); Sodium 157 MMOL/L (136-145)
[2018-10-01 17:09] LABS: Basophils # 0.1 10*3/uL (0.0-0.2); Basophils % 0.8 % (0.0-0.8); Eosinophils % 0.2 % (0.00-10.9); Hematocrit 37.9 VOL% (42.0-52.0); Hemoglobin 11.4 GM/DL (14.0-18.0); Immature Granulocytes % 1.9 %; Immature Granulocytes Absolute 0.23 #; Lymphocytes # 7.2 10*3/uL (1.4-4.0); Lymphocytes % 58.8 % (21.2-54.2); Mean Corpuscular HGB Conc 30.1 GM/DL (32-36); Mean Corpuscular Hemoglobin 31 PG (27-34); Mean Corpuscular Volume 101.3 FL (87-102); Monocytes # 0.5 10*3/uL (0.11-0.8); Monocytes % 4.4 % (1.7-12.7); NRBC # 0.03 10*3/uL; Neutrophils # 4.1 10*3/uL (1.4-7.4); Neutrophils % 33.9 % (38.7-73.9); Platelet Count 186 T/CUMM (130-400); Red Blood Count 3.74 MC/CUMM (3.8-5.5); Red Cell Distribution Width 18.6 % (9.3-17.3); White Blood Count 12.2 T/CUMM (4-12)
[2018-10-01 17:38] LABS: Band Neutrophils 8 % (0-10); Lymphocytes 27 % (20-55); Segmented Neutrophils 60 % (50-85); Total Cells Counted 100
[2018-10-01 17:39] LABS: Platelet Estimate Adequate
[2018-10-01 17:47] LABS: Anisocytosis 1+
[2018-10-01 17:50] LABS: Hypochromasia 1+
[2018-10-01 17:51] LABS: Polychromasia Few; Stomatocytes 1+
[2018-10-01] MEDS ORDERED: LEVOFLOXACIN INJ 500 MG in PREMIX 1 EACH IV STA (17:58)
[2018-10-01] MEDS ORDERED: MORPHINE 4 MG/1 ML VIAL IM PRN (18:54)
[2018-10-01] MEDS ORDERED: MORPHINE 10 MG/5 ML UDCUP PO PRN (18:54)
[2018-10-01] MEDS ORDERED: LORazepam 2 MG/1 ML VIAL IM PRN (18:56)
[2018-10-01] MEDS ORDERED: ONDANSETRON 4 MG/2 ML VIAL IM PRN (21:40)
[2018-10-01] MEDS ORDERED: MORPHINE 4 MG/1 ML VIAL IV PRN (23:16)
[2018-10-01] MEDS ORDERED: LORazepam 2 MG/1 ML VIAL IV PRN (23:18)
[2018-10-02 05:27] VITALS: BP 111/54
== END 2018-10-02 07:05 | disposition expired | DRG 951 ==
LOC: EDBD → EDUNIT# → N.ED 14:49 → SUATTDRO 18:17 → N.EDINP 18:17 → N.4E 20:24
PROVIDERS: ADMIT Internal Medicine; ATTEND Internal Medicine